=== PATIENT | male | born 1965 | race Caucasian/White ===

== ENCOUNTER 2016-08-03 17:21 | Emergency (ER) | payer OTHER ==
[~2016-08-03] VITALS: Ht 180.3 cm; Wt 77.3 kg
[2016-08-03 17:31] VITALS: BP 140/76; PULSE 87; RESP 18; TEMP 98.3; O2SAT 94
[2016-08-03] MEDS ORDERED: SODIUM CHLORIDE 0.9% FLUSH 5 ML FLUSH IVF PRN (17:45)
[2016-08-03] MEDS ORDERED: SODIUM CHLOR 0.9% 1000 ML INJ 1,000 ML IV ONE (17:45)
--- NOTE | 2016-08-03 17:50 | PD ---
HPI Chief Complaint: OD/ Ingestion Time Seen by Provider: 17:47 Travel History International Travel<30 days: No Contact w/Intl Traveler<30days: No Traveled to known affect area: No History of Present Illness HPI 51-year-old male presents to the emergency Department under police custody for suspected overdose. The patient states that he took approximately (12) 1 mg Xanax that he had in his pocket approximately 2 hours ago. He states he did this because he did not want to have a drug charge. The patient denies any chronic medical problems or taking any medications prescribed. He states he took these from a friend's bottle. The patient was under arrest when he did this. Apparently on scene, the patient was unresponsive, but is now talking and following commands. The patient states he feels "xanied out", but denies any medical complaints. However, during my exam, he laid back and closed his eyes, not responding. He quickly awakened to a sternal rub. Patient is maintaining his own airway and vital signs are stable. According to the chart, the patient has a history of claiming Xanax overdose when being arrested. The patient denies any chronic medical problems or taking any prescribed medications. He reports "drinking a lot" of alcohol. Patient denies any suicidal or homicidal ideation. PFSH Past Medical History Medical History: Denies Significant Hx Blood Disorders: No Anxiety: Yes Depression: No Cancer: No Diabetes: No Diminished Hearing: No Endocrine: No Hepatitis: Yes (HEP C) Hypertension: Yes Immune Disorder: Yes Musculoskeletal: Yes (CHRONIC BACK PAIN-L4-L5 Herniated disc.) Neurologic: No Psychiatric: Yes (SCHIZOPHRENIA) Reproductive: No Schizophrenia: Yes Thyroid Disease: No Past Surgical History Abdominal Surgery: Yes (LIVER BX NEG) Other Surgery: Yes Social History Alcohol Use: Yes Tobacco Use: Yes Substance Use: No Allergies-Medications (Allergen,Severity, Reaction): Coded Allergies: Tylenol (Verified Allergy, Mild, DUE TO HEPATITIS, 08/03/16) Reported Meds & Prescriptions Reported Meds & Active Scripts Active No Active Prescriptions or Reported Medications Review of Systems Except as stated in HPI: all other systems reviewed are Neg Physical Exam Narrative GENERAL: Well-developed well-nourished male patient, afebrile. SKIN: Warm and dry. HEAD: Normocephalic. Atraumatic. EYES: No scleral icterus. No injection or drainage. PERRLA. EOM intact. ENT: Mucosa pink and moist. No erythema or exudates. No uvular edema. No uvular , palatal, or tonsillar deviation. Airway patent. Nasal turbinates appear normal without nasal blood, purulent drainage or septal hematoma. Bilateral tympanic membranes are clear without erythema or perforation. NECK: Supple, trachea midline. No JVD or lymphadenopathy. CARDIOVASCULAR: Regular rate and rhythm without murmurs, gallops, or rubs. RESPIRATORY: Breath sounds equal bilaterally. No accessory muscle use. Lungs sounds are clear to auscultation GASTROINTESTINAL: Abdomen soft, non-tender, nondistended. MUSCULOSKELETAL: No cyanosis, or edema. BACK: Nontender without obvious deformity. No CVA tenderness. Data Data Last Documented VS Vital Signs Date Time Temp Pulse Resp B/P Pulse Ox O2 Delivery O2 Flow Rate FiO2 08/03/16 18:29 96 Room Air 08/03/16 17:31 98.3 87 18 140/76 Orders Electrocardiogram (08/03/16 17:45) Complete Blood Count With Diff (08/03/16 17:45) Comprehensive Metabolic Panel (08/03/16 17:45) Prothrombin Time / Inr (Pt) (08/03/16 17:45) Act Partial Throm Time (Ptt) (08/03/16 17:45) Urinalysis - C+S If Indicated (08/03/16 17:45) Iv Access Insert/Monitor (08/03/16 17:45) Ecg Monitoring (08/03/16 17:45) Oximetry (08/03/16 17:45) Sodium Chloride 0.9% Flush (Ns Flush) (08/03/16 17:45) Sodium Chlor 0.9% 1000 Ml Inj (Ns 1000 M (08/03/16 17:45) Drug Screen, Random Urine (08/03/16 17:45) Alcohol (Ethanol) (08/03/16 17:45) Salicylates (Aspirin) (08/03/16 17:45) Tylenol (Acetaminophen) (08/03/16 17:45) Diet Regular Basic (08/04/16 Dinner) Labs Laboratory Tests Test 08/03/16 18:29 White Blood Count 4.7 TH/MM3 Red Blood Count 4.21 MIL/MM3 Hemoglobin 13.2 GM/DL Hematocrit 38.6 % Mean Corpuscular Volume 91.7 FL Mean Corpuscular Hemoglobin 31.4 PG Mean Corpuscular Hemoglobin 34.3 % Concent Red Cell Distribution Width 13.2 % Platelet Count 208 TH/MM3 Mean Platelet Volume 7.8 FL Neutrophils (%) (Auto) 75.0 % Lymphocytes (%) (Auto) 16.9 % Monocytes (%) (Auto) 6.5 % Eosinophils (%) (Auto) 0.9 % Basophils (%) (Auto) 0.7 % Neutrophils # (Auto) 3.5 TH/MM3 Lymphocytes # (Auto) 0.8 TH/MM3 Monocytes # (Auto) 0.3 TH/MM3 Eosinophils # (Auto) 0.0 TH/MM3 Basophils # (Auto) 0.0 TH/MM3 CBC Comment DIFF FINAL Differential Comment Prothrombin Time 10.0 SEC Prothromb Time International 0.9 RATIO Ratio Activated Partial 24.1 SEC Thromboplast Time Urine Color YELLOW Urine Turbidity CLEAR Urine pH 5.0 Urine Specific [place] 1.017 Urine Protein NEG mg/dL Urine Glucose (UA) NEG mg/dL Urine Ketones NEG mg/dL Urine Occult Blood NEG Urine Nitrite NEG Urine Bilirubin NEG Urine Urobilinogen LESS THAN 2.0 MG/DL Urine Leukocyte Esterase NEG Urine RBC LESS THAN 1 /hpf Urine WBC 4 /hpf Urine Sperm RARE Microscopic Urinalysis Comment CULT NOT INDICATED Sodium Level 144 MEQ/L Potassium Level 3.7 MEQ/L Chloride Level 110 MEQ/L Carbon Dioxide Level 25.1 MEQ/L Anion Gap 9 MEQ/L Blood Urea Nitrogen 11 MG/DL Creatinine 0.79 MG/DL Estimat Glomerular Filtration 103 ML/MIN Rate Random Glucose 122 MG/DL Calcium Level 8.3 MG/DL Total Bilirubin 0.2 MG/DL Aspartate Amino Transf 66 U/L (AST/SGOT) Alanine Aminotransferase 59 U/L (ALT/SGPT) Alkaline Phosphatase 59 U/L Total Protein 7.5 GM/DL Albumin 3.6 GM/DL Salicylates Level 4.2 MG/DL Urine Opiates Screen NEG Acetaminophen Level LESS THAN 2.0 MCG/ML Urine Barbiturates Screen NEG Urine Amphetamines Screen NEG Urine Benzodiazepines Screen NEG Urine Cocaine Screen POS Urine Cannabinoids Screen NEG Ethyl Alcohol Level 65 MG/DL MDM Medical Decision Making Medical Screen Exam Complete: Yes Emergency Medical Condition: Yes Medical Record Reviewed: Yes Differential Diagnosis Malingering versus benzodiazepine overdose versus polysubstance abuse Narrative Course 51-year-old male presents to the emergency Department under police custody and states he took 12 Xanax after he was arrested. According to the record, this is the third time the patient has made this claim upon being arrested. The patient is awake and talking to me. EKG, CBC, CMP, PTT, PTT/INR, UA, urine drug screen, alcohol level, salicylate level, acetaminophen level are ordered and pending. EKG shows sinus rhythm, heart rate 82, no acute ST changes. CBC shows no acute abnormality. CMP shows no acute abnormalities. Coags show no acute abnormality. UDS is positive for cocaine, but negative for benzodiazepines. UA shows no evidence for acute infection. Alcohol level is 65. Salicylate level is 4.2. Acetaminophen level is less than 2.0. 1946 - I spoke to poison control who recommends observation and supportive care for 4 hours. I spoke to Sera, nurse specialist. 2129 - the patient reports feeling fine and is asymptomatic. The patient is stable to be discharged. The patient was discharged in stable condition with instructions, including return instructions and follow up instructions. Diagnosis Primary Impression: Polysubstance abuse Referrals: Primary Care Physician call for appointment Patient Instructions: General Instructions, Polysubstance Abuse (ED) Additional Instructions: Follow-up with your primary care physician. Return to the emergency department for any acute worsening of symptoms. Med/Other Pt SpecificInfo: No Change to Meds Scripts No Active Prescriptions or Reported Meds Disposition: 01 DISCHARGE HOME Condition: Stable GaryRey chanceGertrude ARNP Aug 03, 2016 17:50
[2016-08-03 18:29] VITALS: O2SAT 96
[2016-08-03 18:54] LABS: BLOOD, URINE NEG (NEG); COMMENT (UR) CULT NOT INDICATED; CULTURE IF INDICATED CULT NOT INDICATED; GLUCOSE,URINE NEG (NEG); KETONE, URINE NEG (NEG); NITRITE,URINE NEG (NEG); URINE COLOR YELLOW (YELLW/STRAW)
[2016-08-03 18:56] LABS: AUTOMATED NEUTROPHIL # 3.5 TH/MM3 (1.8-7.7); BASOPHIL % 0.7 % (0.0-2.0); EOSINOPHIL % 0.9 % (0.0-4.0); HEMATOCRIT 38.6 % (39.0-51.0); HEMO FLAGS DIFF FINAL; LYMPH % 16.9 % (9.0-44.0); LYMPHOCYTE # 0.8 TH/MM3 (1.0-4.8); MEAN CELL VOLUME 91.7 FL (80.0-100.0); MEAN CORPUSCULAR HEMOGLOBIN 31.4 PG (27.0-34.0); MEAN CORPUSCULAR HGB CONC 34.3 % (32.0-36.0); MONO % 6.5 % (0.0-8.0); PLATELET COUNT 208 TH/MM3 (150-450); RED BLOOD COUNT 4.21 MIL/MM3 (4.50-5.90); RED CELL DISTRIBUTION WIDTH 13.2 % (11.6-17.2); WHITE BLOOD COUNT 4.7 TH/MM3 (4.0-11.0)
[2016-08-03 18:59] LABS: AMPHETAMINE, URINE NEG (NEG); BARBITURATES, URINE NEG (NEG); COCAINE, URINE POS (NEG)
[2016-08-03 19:02] LABS: APTT (PATIENT) 24.1 SEC (24.3-30.1); INTERNATIONAL NORMALIZED RATIO 0.9 RATIO
[2016-08-03 19:09] LABS: ANION GAP 9 MEQ/L (5-15)
[2016-08-03 19:12] LABS: ALKALINE PHOSPHATASE 59 U/L (45-117); ALT (GPT) 59 U/L (12-78); AST (GOT) 66 U/L (15-37); BICARBONATE 25.1 MEQ/L (21.0-32.0); BLOOD UREA NITROGEN 11 MG/DL (7-18); CHLORIDE 110 MEQ/L (98-107); GLOMERULAR FILTRATION RATE 103 ML/MIN (>89); POTASSIUM 3.7 MEQ/L (3.5-5.1); SODIUM (NA) 144 MEQ/L (136-145); TOTAL BILIRUBIN ADULT 0.2 MG/DL (0.2-1.0)
[2016-08-03 19:29] LABS: ACETAMINOPHEN LESS THAN 2.0 MCG/ML (10.0-30.0)
--- NOTE | 2016-08-04 22:23 | EKG ---
Date Performed: 08/03/2016 Time Performed: 18:21:32 PTAGE: 51 years EKG: Sinus rhythm NORMAL ECG PREVIOUS TRACING : 01/16/2016 11.50 Compared to prior tracing no significant change DOCTOR: Jose Luis Finn Interpretating Date/Time 08/04/2016 22:20:46
== END 2016-08-03 21:55 | disposition home or self-care (01) ==
LOC: NEPC 17:21
DX: F19.10 Other psychoactive substance abuse, uncomplicated (principal); B19.20 Unspecified viral hepatitis C without hepatic coma; I10 Essential (primary) hypertension; Z72.0 Tobacco use
CPT/HCPCS: 80053; 80307; 80320; 81001; 85025; 85610; 85730; 93005; 99284; J7030; 80329; G0480

== ENCOUNTER 2016-08-15 02:55 | Inpatient (IN) | payer OTHER ==
[2016-08-15] VITALS (12 sets, daily range): BP systolic 133–169; BP diastolic 83–106; PULSE 52–85; RESP 10–18; TEMP 97.9–98.6; O2SAT 97–100
[~2016-08-15] VITALS: Ht 172.7 cm; Wt 81.6 kg
[2016-08-15] MEDS ORDERED: SODIUM CHLOR 0.9% 1000 ML INJ 1,000 ML IV SCH (03:13)
[2016-08-15] MEDS ORDERED: SODIUM CHLORIDE 0.9% FLUSH 5 ML FLUSH IVF PRN (03:15)
[2016-08-15 03:45] LABS: BASOPHIL % 0.7 % (0.0-2.0); EOSINOPHIL % 0.8 % (0.0-4.0); HEMATOCRIT 42.4 % (39.0-51.0); HEMO FLAGS DIFF FINAL; LYMPH % 33.8 % (9.0-44.0); LYMPHOCYTE # 1.8 TH/MM3 (1.0-4.8); MEAN CELL VOLUME 93.9 FL (80.0-100.0); MEAN CORPUSCULAR HEMOGLOBIN 31.8 PG (27.0-34.0); MEAN CORPUSCULAR HGB CONC 33.9 % (32.0-36.0); MONO % 8.9 % (0.0-8.0); NEUT % 55.8 % (16.0-70.0); PLATELET COUNT 255 TH/MM3 (150-450); RED BLOOD COUNT 4.51 MIL/MM3 (4.50-5.90); RED CELL DISTRIBUTION WIDTH 15.1 % (11.6-17.2); WHITE BLOOD COUNT 5.3 TH/MM3 (4.0-11.0)
[2016-08-15] MEDS ORDERED: NALOXONE HCL 2 MG/2 ML VIAL IV PUSH ONE (03:45)
[2016-08-15 03:46] LABS: BLOOD, URINE NEG (NEG); COMMENT (UR) CATH-CULT NOT IND; CULTURE IF INDICATED CATH CULTURE NOT IND; GLUCOSE,URINE NEG (NEG); HYALINE CAST, URINE 1 /lpf (RARE); KETONE, URINE NEG (NEG); MUCUS URINE FEW /lpf (OCC); NITRITE,URINE NEG (NEG); PH, URINE 5.5 (5.0-8.5); URINE COLOR YELLOW (YELLW/STRAW)
[2016-08-15 03:52] LABS: APTT (PATIENT) 25.2 SEC (24.3-30.1); INTERNATIONAL NORMALIZED RATIO 0.9 RATIO; PROTHROMBIN TIME - PATIENT 10.3 SEC (9.8-11.6)
[2016-08-15 03:53] LABS: AMPHETAMINE, URINE NEG (NEG); BARBITURATES, URINE NEG (NEG); COCAINE, URINE POS (NEG)
[2016-08-15 04:11] LABS: ALT (GPT) 51 U/L (12-78); ANION GAP 10 MEQ/L (5-15); AST (GOT) 44 U/L (15-37); BICARBONATE 27.7 MEQ/L (21.0-32.0); BLOOD UREA NITROGEN 7 MG/DL (7-18); CHLORIDE 109 MEQ/L (98-107); GLOMERULAR FILTRATION RATE 103 ML/MIN (>89); POTASSIUM 3.5 MEQ/L (3.5-5.1); SODIUM (NA) 147 MEQ/L (136-145)
[2016-08-15 04:21] LABS: ALKALINE PHOSPHATASE 65 U/L (45-117); CREATINE KINASE 207 U/L (39-308); TOTAL BILIRUBIN ADULT 0.2 MG/DL (0.2-1.0)
[2016-08-15 04:23] LABS: ACETAMINOPHEN LESS THAN 2.0 MCG/ML (10.0-30.0)
[2016-08-15] MEDS ORDERED: THIAMINE INJ 100 MG in SODIUM CHLORIDE 0.9% INJ 100 ML IV ONE (04:30)
[2016-08-15] MEDS ORDERED: NALOXONE INJ 4 MG in DEXTROSE 5% IN WATER INJ 246 ML IV SCH ×2 (04:30)
--- NOTE | 2016-08-15 04:55 | RADRPT ---
EXAM DATE/TIME: 08/15/2016 03:42 [facility] COMPARISON: CT BRAIN W/O CONTRAST, May 03, 2016, 16:36. INDICATIONS : Altered mental status. RADIATION DOSE: 46.07 CTDIvol (mGy) MEDICAL HISTORY : Hypertension. Hepatitis C. Substance abuse SURGICAL HISTORY : None. ENCOUNTER: Initial ACUITY: 1 day PAIN SCALE: Non-responsive LOCATION: cranial TECHNIQUE: Multiple contiguous axial images were obtained of the head. Using automated exposure control and adj ustment of the mA and/or kV according to patient size, radiation dose was kept as low as reasonably a chievable to obtain optimal diagnostic quality images. FINDINGS: CEREBRUM: The ventricles are normal for age. No evidence of midline shift, mass lesion, hemorrhage or acute in farction. No extra-axial fluid collections are seen. POSTERIOR FOSSA: The cerebellum and brainstem are intact. The 4th ventricle is midline. The cerebellopontine angle i s unremarkable. EXTRACRANIAL: The visualized portion of the orbits is intact. SKULL: The calvaria is intact. No evidence of skull fracture. CONCLUSION: Normal examination. Akbar Reed MD on August 15, 2016 at 4:52 Board Certified Radiologist. This report was verified electronically.
--- NOTE | 2016-08-15 05:04 | PD ---
HPI Chief Complaint: Altered Mental Status Time Seen by Provider: 03:13 Travel History International Travel<30 days: No Contact w/Intl Traveler<30days: No Traveled to known affect area: No History of Present Illness HPI Patient 51-year-old male who apparently was arrested tonight on transport to [facility] he was GCS 15. Shortly after intake he was found lying on the ground GCS of 3. 911 was called and EMS transported him to the emergency department. No much of the history is available at this time. On arrival the patient is GCS 3. He is breathing approximate 6-8 times minute. He had no desaturation prior to EMS arrival. PFSH Past Medical History Blood Disorders: No Anxiety: Yes Depression: No Cancer: No Diabetes: No Diminished Hearing: No Endocrine: No Hepatitis: Yes (HEP C) Hypertension: Yes Immune Disorder: Yes Musculoskeletal: Yes (CHRONIC BACK PAIN-L4-L5 Herniated disc.) Neurologic: No Psychiatric: Yes (SCHIZOPHRENIA) Reproductive: No Schizophrenia: Yes Thyroid Disease: No Past Surgical History Abdominal Surgery: Yes (LIVER BX NEG) Other Surgery: Yes Social History Alcohol Use: Yes Tobacco Use: Yes Substance Use: No Allergies-Medications (Allergen,Severity, Reaction): Coded Allergies: Tylenol (Verified Allergy, Mild, DUE TO HEPATITIS, 08/15/16) Reported Meds & Prescriptions Reported Meds & Active Scripts Active No Active Prescriptions or Reported Medications Review of Systems ROS Limitations: Altered Mental Status Physical Exam Narrative GENERAL: Well-developed well-nourished, unresponsive with a GCS of 3. SKIN: [place] and warm. HEAD: Atraumatic. Normocephalic. EYES: Pupils approximately 3 mm and very sluggish. No scleral icterus. No injection or drainage. ENT: No nasal bleeding or discharge. Mucous membranes pink and moist. NECK: Trachea midline. No JVD. CARDIOVASCULAR: Regular rate and rhythm. No murmur appreciated. 2+ bilaterally equal pulses in all 4 extremities. RESPIRATORY: No accessory muscle use. Clear to auscultation. Breath sounds equal bilaterally. Bradypneic GASTROINTESTINAL: Abdomen soft, non-tender, nondistended. Hepatic and splenic margins not palpable. MUSCULOSKELETAL: No obvious deformities. No clubbing. No cyanosis. No edema. NEUROLOGICAL: GCS of 3, does not respond to even the deepest painful stimuli to nailbeds or sternal rub. When lifting the patient's hands and dropping them over his face he repetitively impacts his face. PSYCHIATRIC: Unable to to assess. Data Data Last Documented VS Vital Signs Date Time Temp Pulse Resp B/P Pulse Ox O2 Delivery O2 Flow Rate FiO2 08/15/16 04:08 77 18 139/85 99 08/15/16 03:18 Nasal Cannula 3 08/15/16 03:08 97.9 Orders Electrocardiogram (08/15/16 03:13) Ammonia (08/15/16 03:13) Complete Blood Count With Diff (08/15/16 03:13) Comprehensive Metabolic Panel (08/15/16 03:13) Creatine Kinase (Cpk) (08/15/16 03:13) Prothrombin Time / Inr (Pt) (08/15/16 03:13) Act Partial Throm Time (Ptt) (08/15/16 03:13) Troponin I (08/15/16 03:13) Thyroid Stimulating Hormone (08/15/16 03:13) Urinalysis - C+S If Indicated (08/15/16 03:13) Ct Brain W/O Iv Contrast(Rout) (08/15/16 03:13) Blood Glucose (08/15/16 03:13) Ecg Monitoring (08/15/16 03:13) Iv Access Insert/Monitor (08/15/16 03:13) Oximetry (08/15/16 03:13) Sodium Chloride 0.9% Flush (Ns Flush) (08/15/16 03:15) Sodium Chlor 0.9% 1000 Ml Inj (Ns 1000 M (08/15/16 03:13) Drug Screen, Random Urine (08/15/16 03:13) Alcohol (Ethanol) (08/15/16 03:13) Salicylates (Aspirin) (08/15/16 03:13) Tylenol (Acetaminophen) (08/15/16 03:13) Urinary Catheter Management HÉCTOR.Q8H (08/15/16 03:13) Naloxone Inj (Narcan Inj) (08/15/16 03:45) Thiamine Inj (Thiamine Inj) (08/15/16 04:30) Naloxone Inj (Narcan Inj) (08/15/16 04:30) Arterial Blood Gas (Abg) (08/15/16 ) Admit Order (Ed Use Only) (08/15/16 ) Labs Laboratory Tests Test 08/15/16 03:30 White Blood Count 5.3 TH/MM3 Red Blood Count 4.51 MIL/MM3 Hemoglobin 14.4 GM/DL Hematocrit 42.4 % Mean Corpuscular Volume 93.9 FL Mean Corpuscular Hemoglobin 31.8 PG Mean Corpuscular Hemoglobin 33.9 % Concent Red Cell Distribution Width 15.1 % Platelet Count 255 TH/MM3 Mean Platelet Volume 7.2 FL Neutrophils (%) (Auto) 55.8 % Lymphocytes (%) (Auto) 33.8 % Monocytes (%) (Auto) 8.9 % Eosinophils (%) (Auto) 0.8 % Basophils (%) (Auto) 0.7 % Neutrophils # (Auto) 3.0 TH/MM3 Lymphocytes # (Auto) 1.8 TH/MM3 Monocytes # (Auto) 0.5 TH/MM3 Eosinophils # (Auto) 0.0 TH/MM3 Basophils # (Auto) 0.0 TH/MM3 CBC Comment DIFF FINAL Differential Comment Prothrombin Time 10.3 SEC Prothromb Time International 0.9 RATIO Ratio Activated Partial 25.2 SEC Thromboplast Time Urine Color YELLOW Urine Turbidity CLEAR Urine pH 5.5 Urine Specific [place] 1.012 Urine Protein NEG mg/dL Urine Glucose (UA) NEG mg/dL Urine Ketones NEG mg/dL Urine Occult Blood NEG Urine Nitrite NEG Urine Bilirubin NEG Urine Urobilinogen LESS THAN 2.0 MG/DL Urine Leukocyte Esterase NEG Urine WBC LESS THAN 1 /hpf Urine Hyaline Casts 1 /lpf Urine Mucus FEW /lpf Microscopic Urinalysis Comment CATH-CULT NOT IND Sodium Level 147 MEQ/L Potassium Level 3.5 MEQ/L Chloride Level 109 MEQ/L Carbon Dioxide Level 27.7 MEQ/L Anion Gap 10 MEQ/L Blood Urea Nitrogen 7 MG/DL Creatinine 0.79 MG/DL Estimat Glomerular Filtration 103 ML/MIN Rate Random Glucose 122 MG/DL Calcium Level 8.1 MG/DL Phosphorus Level 3.8 MG/DL Total Bilirubin 0.2 MG/DL Aspartate Amino Transf 44 U/L (AST/SGOT) Alanine Aminotransferase 51 U/L (ALT/SGPT) Alkaline Phosphatase 65 U/L Ammonia 31 MCMOL/L Total Creatine Kinase 207 U/L Troponin I LESS THAN 0.02 NG/ML Total Protein 7.8 GM/DL Albumin 3.5 GM/DL Thyroid Stimulating Hormone 0.606 uIU/ML 3rd Gen Salicylates Level 3.7 MG/DL Urine Opiates Screen NEG Acetaminophen Level LESS THAN 2.0 MCG/ML Urine Barbiturates Screen NEG Urine Amphetamines Screen NEG Urine Benzodiazepines Screen NEG Urine Cocaine Screen POS Urine Cannabinoids Screen NEG Ethyl Alcohol Level 281 MG/DL MDM Medical Decision Making Medical Screen Exam Complete: Yes Emergency Medical Condition: Yes Differential Diagnosis Altered mental status, ingestion, intoxication, hypercapnic respiratory failure , encephalopathy, malingering does need to be considered. Narrative Course Patient was roomed in the emergency department, or planning for intubation patient's blood sugar was checked is 170 range. He was given 2 mg of Narcan which didn't have some response to mental status. Just prior to applying induction agent patient opened his eyes and began following commands and bilateral upper extremities and his GCS improved to [id number]. Patient was taken to CT scan which was negative, labs including ammonia lactic acid and CBC CMP lipase were within normal limits. ABG was also within normal limits. The catheter was inserted and patient had no response to this, GCS was reassessed and is now GCS 3 again. Patient was given an additional dose of Narcan and he awoke and stated that his penis hurt after the catheter. Patient was started on Narcan drip. I discussed the patient with Dr. Webber was coming down examine the patient and agreed to admit. Shortly after Dr. Webber admitted, the patient' s GCS continues to improve and is now GCS of 15. Critical Care Narrative Aggregate critical care time was 35 minutes. Time to perform other separately billable procedures was not included in the critical care time. My time did not include minutes spent treating any other patients simultaneously or on activities that did not directly contribute to the patient's treatment. The services I provided to this patient were to treat and/or prevent clinically significant deterioration that could result in: , disability, organ failure. I provided critical care services requiring my management, as noted below: Chart data review, documentation time, medication orders and management, vital sign assessments/reviewing monitor data, ordering and reviewing lab tests, ordering and interpreting/reviewing x-rays and diagnostic studies, care of the patient and discussion of the patient with the admitting physicians. Diagnosis Primary Impression: Altered mental state Qualified Code: R40.2432 - [place] coma scale total score 3-8, at arrival to emergency department Admitting Information Admitting Physician Requests: Admit Scripts No Active Prescriptions or Reported Meds Condition: Joe Carroll MD Aug 15, 2016 05:04
--- NOTE | 2016-08-15 05:13 | HHI.HP ---
[facility] Service Critical Care Medicine Primary Care Physician No Primary Care Physician Admission Diagnosis Altered Mental Status. Diagnosis: (1) Acute encephalopathy Diagnosis: Principal (2) Cocaine and alcohol intoxication Diagnosis: Principal (3) Polysubstance abuse Diagnosis: Secondary (4) Hypertension Diagnosis: Secondary (5) Hepatitis C Diagnosis: Secondary Chief Complaint: Altered mentation Travel History International Travel<30 Days: No Contact w/Intl Traveler <30 Da: No Traveled to Known Affected Are: No History of Present Illness Patient is a 51 year-old male with history of hepatitis C and polysubstance abuse who was brought into the ED by police officers for evaluation of acute mental status change. Apparently patient was arrested and was taken to detention, later found unresponsive on the floor. Patient received 0.8 mg Narcan by EMS followed by 2 mg of Narcan 2 in the ED. Each time patient response to Narcan, wakes up and talk but then becomes unresponsive in a few minutes. CT head is negative. Urine drug screen positive for cocaine, alcohol level was 281. I evaluated the patient in the ED. He does not respond to painful stimuli. ER physician has just started Narcan gtt. ABGs normal. I do not think patient is to be intubated at this time. Will admit to ICU for close neuro checks. Review of Systems ROS Limitations: Altered Mental Status Past Family Social History Allergies: Coded Allergies: Tylenol (Verified Allergy, Mild, DUE TO HEPATITIS, 08/15/16) Past Medical History Hepatitis C Alcohol dependence Tobacco use Chronic back pain-L4-L5 Herniated disc Past Surgical History None Reported Medications None Active Ordered Medications Reviewed Family History Father of ID at the age of 63 Social History Per prev admit note: Smokes half a pack per day 30 years, Drinks about 8-10 beers per day. UDS was positive for cocaine Physical Exam Vital Signs Vital Signs Date Time Temp Pulse Resp B/P Pulse Ox O2 Delivery O2 Flow Rate FiO2 08/15/16 04:08 77 18 139/85 99 08/15/16 03:18 98 Nasal Cannula 3 08/15/16 03:13 98 Room Air 3 08/15/16 03:08 97.9 83 18 133/83 98 Physical Exam GENERAL: This is a well-nourished, well-developed patient, remains unresponsive SKIN: No rashes, ecchymoses or lesions. Cool and dry. HEAD: Atraumatic. Normocephalic. EYES: Pinpoint pupils 3mm bilaterally, reactive. No scleral icterus. No injection or drainage. ENT: Airway patent. Oral mucosa dry NECK: Trachea midline. No JVD or lymphadenopathy. Supple and nontender CARDIOVASCULAR: Regular rate and rhythm without murmurs, gallops, or rubs. No edema RESPIRATORY: Clear to auscultation. Breath sounds equal bilaterally. No wheezes , rales, or rhonchi. GASTROINTESTINAL: Abdomen soft, non-tender, nondistended. No hepato-splenomegaly MUSCULOSKELETAL: Extremities without clubbing, cyanosis, or edema. NEUROLOGICAL: Patient remains unresponsive. Unable to elicit withdrawal to pain. (Few minutes ago when he received Narcan he was talking and communicating) Laboratory Laboratory Tests Test 08/15/16 03:30 White Blood Count 5.3 Red Blood Count 4.51 Hemoglobin 14.4 Hematocrit 42.4 Mean Corpuscular Volume 93.9 Mean Corpuscular Hemoglobin 31.8 Mean Corpuscular Hemoglobin 33.9 Concent Red Cell Distribution Width 15.1 Platelet Count 255 Mean Platelet Volume 7.2 Neutrophils (%) (Auto) 55.8 Lymphocytes (%) (Auto) 33.8 Monocytes (%) (Auto) 8.9 Eosinophils (%) (Auto) 0.8 Basophils (%) (Auto) 0.7 Neutrophils # (Auto) 3.0 Lymphocytes # (Auto) 1.8 Monocytes # (Auto) 0.5 Eosinophils # (Auto) 0.0 Basophils # (Auto) 0.0 CBC Comment DIFF FINAL Differential Comment Prothrombin Time 10.3 Prothromb Time International 0.9 Ratio Activated Partial 25.2 Thromboplast Time Urine Color YELLOW Urine Turbidity CLEAR Urine pH 5.5 Urine Specific [place] 1.012 Urine Protein NEG Urine Glucose (UA) NEG Urine Ketones NEG Urine Occult Blood NEG Urine Nitrite NEG Urine Bilirubin NEG Urine Urobilinogen LESS THAN 2.0 Urine Leukocyte Esterase NEG Urine WBC LESS THAN 1 Urine Hyaline Casts 1 Urine Mucus FEW Microscopic Urinalysis Comment CATH-CULT NOT IND Sodium Level 147 Potassium Level 3.5 Chloride Level 109 Carbon Dioxide Level 27.7 Anion Gap 10 Blood Urea Nitrogen 7 Creatinine 0.79 Estimat Glomerular Filtration 103 Rate Random Glucose 122 Calcium Level 8.1 Total Bilirubin 0.2 Aspartate Amino Transf 44 (AST/SGOT) Alanine Aminotransferase 51 (ALT/SGPT) Alkaline Phosphatase 65 Ammonia 31 Total Creatine Kinase 207 Troponin I LESS THAN 0.02 Total Protein 7.8 Albumin 3.5 Thyroid Stimulating Hormone 0.606 3rd Gen Salicylates Level 3.7 Urine Opiates Screen NEG Acetaminophen Level LESS THAN 2.0 Urine Barbiturates Screen NEG Urine Amphetamines Screen NEG Urine Benzodiazepines Screen NEG Urine Cocaine Screen POS Urine Cannabinoids Screen NEG Ethyl Alcohol Level 281 Result Diagram: 08/15/16 0330 08/15/[address] head negative Assessment and Plan Assessment and Plan NEURO: Acute encephalopathy Cocaine and alcohol intoxication Polysubstance abuse Alcohol dependence -Monitor closely for airway protection -Watch for alcohol withdrawal, supplement thiamine -Urine drug screen positive for cocaine but negative for opiates -Patient did respond to Narcan IV push so will start a Narcan infusion for any synthetic drugs which may not show on the drug screen RESP: Respiratory insufficiency -Nasal cannula oxygen -I do not think patient needs to be intubated at this time -Aggressive pulmonary toilet CV: -Normal saline IV fluids 2 L bolus and 125 mL per hour -Monitor heart rate and blood pressure GI: History of hepatitis C -Nothing by mouth. IV Protonix : -Monitor renal function closely. Juan catheter. ID: -Watch closely for infection HEME: -Monitor CBC, coags ENDO: -Electrolyte replacement per protocol PROPH: -Bilateral lower extremity SCDs. Lovenox for DVT prophylaxis, Protonix for GI prophylaxis LINES: -Utilize peripheral IVs, central line if needed CC time 35 min Code Status Full Discussed Condition With Dr. Mason Problem Qualifiers (1) Hypertension: Qualified Code: I15.9 - Secondary hypertension Andrzej Webber MD Aug 15, 2016 05:13 Andrzej Webber MD Aug 15, 2016 05:13
[2016-08-15 05:15] LABS: BLOOD GAS CARBOXYHEMOGLOBIN 4.9 % (0-4); BLOOD GAS HCO3 25 mmol/L (22-26); BLOOD GAS METHEMOGLOBIN 2.3 % (0-2); BLOOD GAS O2 HGB SATURATION 90 % (90-100); BLOOD GAS OXYGEN CONTENT 18.1 Vol % (12.0-20.0); BLOOD GAS PCO2 42 mmHg (38-42); BLOOD GAS PO2 92 mmHG (61-120); BLOOD GAS TOTAL HGB 14.2 G/DL (12.0-16.0); TEMP CORR TO 98.6
[2016-08-15] MEDS ORDERED: SODIUM CHLOR 0.9% 1000 ML INJ 1,000 ML IV ONE ×2 (05:15)
[2016-08-15 05:16] LABS: CRITICAL VALUE NO; DRAW SITE RT FEMORAL; LITER FLOW 2 L/M; NUMBER OF ARTERIAL PUNCTURES 1; OXYGEN DEVICE NASAL CANNULA; STAT YES
[2016-08-15] MEDS ORDERED: MAGNESIUM SULFATE INJ 4 GM in SODIUM CHLORIDE 0.9% INJ 92 ML IV PRN (05:30)
[2016-08-15] MEDS ORDERED: CHLORHEXIDINE GLUCONATE 2 % 1 PACK (2 CLOTHS) TOP PRN (05:30)
[2016-08-15] MEDS ORDERED: SODIUM CHLORIDE 0.9% FLUSH 5 ML FLUSH IV FLUSH PRN (05:30)
[2016-08-15] MEDS ORDERED: MAGNESIUM SULFATE INJ 2 GM in SODIUM CHLORIDE 0.9% INJ 96 ML IV PRN (05:30)
[2016-08-15] MEDS ORDERED: POTASSIUM CHLOR 40 MEQ PREMIX 100 ML IV PRN ×2 (05:30)
[2016-08-15] MEDS ORDERED: POTASSIUM CHLOR 20 MEQ PREMIX 100 ML IV PRN ×2 (05:30)
[2016-08-15] MEDS ORDERED: POTASSIUM PHOSPHATE MONOBASIC 500 MG TAB PO PRN (05:30)
[2016-08-15] MEDS ORDERED: POTASSIUM PHOSPHATE MONOBASIC 500 MG TAB PO/TUBE PRN (05:30)
[2016-08-15] MEDS ORDERED: SODIUM PHOSPHATE INJ 30 MMOL in SODIUM CHLOR 0.9% 250 ML INJ 240 ML IV PRN (05:30)
[2016-08-15] MEDS ORDERED: MAGNESIUM OXIDE 400 MG TAB PO PRN (05:30)
[2016-08-15] MEDS ORDERED: POTASSIUM PHOSPHATE INJ 30 MMOL in SODIUM CHLOR 0.9% 250 ML INJ 250 ML IV PRN (05:30)
[2016-08-15] MEDS ORDERED: MISCELLANEOUS NURSING INFORMATION XX SCH (05:30)
[2016-08-15] MEDS ORDERED: POTASSIUM CL 40 MEQ/30 ML LIQ UDC PO/TUBE PRN ×2 (05:30)
[2016-08-15] MEDS ORDERED: RESP: ALBUTEROL 2.5 MG/IPRATROPIUM 0.5 MG NEB (PRN) INH (05:30)
[2016-08-15] MEDS: DEXT 5%-NACL 0.45% 1000 ML INJ 1,000 ML IV SCH ×3 (06:28→20:38)
[2016-08-15] MEDS: ENOXAPARIN SODIUM 40 MG/0.4 ML SYRINGE SQ SCH (06:30)
[2016-08-15] MEDS ORDERED: THIAMINE INJ 100 MG in SODIUM CHLORIDE 0.9% INJ 100 ML IV SCH ×4 (09:00)
[2016-08-15] MEDS: SODIUM CHLORIDE 0.9% FLUSH 5 ML FLUSH IV FLUSH SCH ×2 (09:00→20:38)
[2016-08-15] MEDS: PANTOPRAZOLE SODIUM 40 MG VIAL IV SCH (09:00)
[2016-08-15] MEDS ORDERED: FLUMAZENIL 0.5 MG/5 ML VIAL IV PUSH PRN (11:00)
[2016-08-15] MEDS ORDERED: LORazepam 2 MG/ML VIAL IV PUSH PRN ×4 (11:00)
--- NOTE | 2016-08-15 14:30 | EKG ---
Date Performed: 08/15/2016 Time Performed: 03:27:58 PTAGE: 51 years EKG: Sinus rhythm NORMAL ECG Compared to prior tracing no significant change PREVIOUS TRACING : 08/03/2016 18.21 DOCTOR: Domenic Giordano Interpretating Date/Time 08/15/2016 14:29:59
[2016-08-16] VITALS (20 sets, daily range): BP systolic 118–185; BP diastolic 56–101; PULSE 53–92; RESP 17–22; TEMP 95.5–99; O2SAT 95–99
[2016-08-16] MEDS ORDERED: IBUPROFEN 400 MG TAB PO ONE (04:00)
[2016-08-16] MEDS ORDERED: CHLORHEXIDINE GLUCONATE 2 % 1 PACK (2 CLOTHS) TOP SCH (04:00)
[2016-08-16] MEDS: ENOXAPARIN SODIUM 40 MG/0.4 ML SYRINGE SQ SCH (04:26)
[2016-08-16] MEDS: DEXT 5%-NACL 0.45% 1000 ML INJ 1,000 ML IV SCH ×3 (04:28→20:15)
[2016-08-16 05:15] LABS: AUTOMATED NEUTROPHIL # 3.5 TH/MM3 (1.8-7.7); BASOPHIL % 0.7 % (0.0-2.0); EOSINOPHIL % 0.9 % (0.0-4.0); HEMATOCRIT 40.2 % (39.0-51.0); HEMO FLAGS DIFF FINAL; LYMPH % 25.7 % (9.0-44.0); LYMPHOCYTE # 1.4 TH/MM3 (1.0-4.8); MEAN CELL VOLUME 92.2 FL (80.0-100.0); MEAN CORPUSCULAR HGB CONC 34.7 % (32.0-36.0); MONO % 8.3 % (0.0-8.0); NEUT % 64.4 % (16.0-70.0); PLATELET COUNT 224 TH/MM3 (150-450); RED BLOOD COUNT 4.36 MIL/MM3 (4.50-5.90); RED CELL DISTRIBUTION WIDTH 14.8 % (11.6-17.2); WHITE BLOOD COUNT 5.3 TH/MM3 (4.0-11.0)
[2016-08-16 05:41] LABS: ALT (GPT) 39 U/L (12-78); ANION GAP 8 MEQ/L (5-15); AST (GOT) 28 U/L (15-37); BICARBONATE 25.8 MEQ/L (21.0-32.0); BLOOD UREA NITROGEN 9 MG/DL (7-18); CHLORIDE 105 MEQ/L (98-107); GLOMERULAR FILTRATION RATE 104 ML/MIN (>89); MAGNESIUM 1.9 MG/DL (1.5-2.5); POTASSIUM 3.5 MEQ/L (3.5-5.1); SODIUM (NA) 139 MEQ/L (136-145)
[2016-08-16 05:44] LABS: ALKALINE PHOSPHATASE 60 U/L (45-117); TOTAL BILIRUBIN ADULT 0.6 MG/DL (0.2-1.0)
--- NOTE | 2016-08-16 08:21 | HHI.PR ---
Subjective Remarks in no acute distress. has minimal pain to the RUQ. awake and alert. d/w the RN and no acute issues over night. Objective Vitals Vital Signs Date Time Temp Pulse Resp B/P Pulse Ox O2 Delivery O2 Flow Rate FiO2 08/16/16 06:00 53 08/16/16 05:25 12 08/16/16 04:00 57 08/16/16 04:00 99.0 57 17 150/74 96 08/16/16 02:00 54 08/16/16 00:00 56 08/16/16 00:00 98.7 56 18 138/67 95 08/15/16 22:00 52 08/15/16 20:00 98.6 64 10 158/98 100 08/15/16 20:00 78 08/15/16 18:00 78 08/15/16 13:36 75 18 156/96 97 Room Air 08/15/16 12:25 81 18 152/99 99 Nasal Cannula 2 08/15/16 10:19 72 18 151/92 99 Room Air I/O 08/15/16 08/15/16 08/15/16 08/16/16 08/16/16 08/16/16 07:00 15:00 23:00 07:00 15:00 23:00 Intake Total 1015 ml 1173 ml Output Total 850 ml 1150 ml Balance 165 ml 23 ml Intake Oral 350 ml 350 ml IV Total 665 ml 823 ml Output Urine Total 850 ml 1150 ml # Bowel Movements 0 0 Result Diagram: 08/16/16 0455 08/16/16 0455 Imaging Last Impressions Head CT 08/15/16 0313 Signed Impressions: Service Date/Time: Monday, August 15, 2016 03:42 - CONCLUSION: Normal examination. Akbar Reed MD Objective Remarks GENERAL: This is a well-nourished, well-developed patient, in no apparent distress. CARDIOVASCULAR: Regular rate and regular rhythm without murmurs, gallops, or rubs. RESPIRATORY: Clear to auscultation. Breath sounds equal bilaterally. No wheezes , rales, or rhonchi. GASTROINTESTINAL: Abdomen soft, non-tender, nondistended. Normal, active bowel sounds MUSCULOSKELETAL: Extremities without clubbing, cyanosis, or edema. NEURO: Alert & Oriented x4 to person, place, time, situation. Moves all ext x4 Procedures none Medications and IVs Current Medications IV Flush 2 ml 2 ml UNSCH PRN IVF FLUSH AFTER USING IV ACCESS; Start 08/15/16 at 03:15; Stop 08/15/16 at 05:32; Status DC Sodium Chloride (NS 1000 ml Inj) 1,000 ml @ 1,000 mls/hr Q1H IV Last administered on 08/15/16 03:35; Start 08/15/16 at 03:13; Stop 08/15/16 at 04:12; Status DC Naloxone HCl 2 mg 2 mg ONCE ONCE IV PUSH Last administered on 08/15/16 04:06; Start 08/15/16 at 03:45; Stop 08/15/16 at 03:46; Status DC Thiamine HCl 100 mg/Sodium Chloride 101 ml @ 101 mls/hr ONCE ONCE IV Last administered on 08/15/16 05:01; Start 08/15/16 at 04:30; Stop 08/15/16 at 05:29; Status DC Naloxone HCl 4 mg/ Dextrose 250 ml @ 0 mls/hr TITRATE IV Last administered on 05:01; Start 08/15/16 at 04:30 Sodium Chloride 1,000 ml @ 999 mls/hr BOLUS ONCE IV Last administered on 06:28; Start 08/15/16 at 05:15; Stop 08/15/16 at 06:15; Status DC Sodium Chloride 1,000 ml @ 999 mls/hr BOLUS ONCE IV Last administered on 05:15; Start 08/15/16 at 05:15; Stop 08/15/16 at 06:15; Status DC Thiamine HCl 100 mg/Sodium Chloride 101 ml @ 101 mls/hr DAILY IV ; Start at 09:00; Stop 08/15/16 at 09:00; Status DC Thiamine HCl 100 mg/Sodium Chloride 101 ml @ 101 mls/hr DAILY IV ; Start at 09:00; Stop 08/15/16 at 09:00; Status DC Potassium Chloride 100 ml @ 50 mls/hr Q2H PRN IV For Potassium 2.8 - 3.2 mEq/L ; Start 08/15/16 at 05:30 Potassium Chloride (KCl 20 Meq Premix Inj) 100 ml @ 50 mls/hr Q2H PRN IV For Potassium 2.8 - 3.2 mEq/L; Start 08/15/16 at 05:30 Potassium Chloride 40 meq 40 meq UNSCH PRN PO/TUBE For Potassium 3.3 - 3.5 mEq/ L Last administered on 08/16/16t 06:02; Start 08/15/16 at 05:30 Potassium Chloride 100 ml @ 25 mls/hr UNSCH PRN IV For Potassium 3.3 - 3.5 mEq /L; Start 08/15/16 at 05:30 Potassium Chloride 100 ml @ 50 mls/hr Q2H PRN IV For Potassium 3.3 - 3.5 mEq/L ; Start 08/15/16 at 05:30 Magnesium Sulfate/ Sodium Chloride (Magnesium Sulfate Inj/NS Inj) 100 ml @ 50 mls/hr UNSCH PRN IV For Magnesium 0.9 - 1.1 mg/dL; Start 08/15/16 at 05:30 Magnesium Oxide 800 mg 800 mg UNSCH PRN PO For Magnesium 1.2 - 1.6 mg/dL; Start 08/15/16 at 05:30 Magnesium Sulfate/ Sodium Chloride (Magnesium Sulfate Inj/NS Inj) 100 ml @ 50 mls/hr UNSCH PRN IV For Magnesium 1.2 - 1.6 mg/dL; Start 08/15/16 at 05:30 Potassium Phosphate 2000 mg 2,000 mg Q4H PRN PO For Phosphorus < 2.5 mg/dL; Start 08/15/16 at 05:30 Sodium Phosphate/ Sodium Chloride (Sodium Phosphate Inj/NS 250 ml Inj) 250 ml @ 42 mls/hr UNSCH PRN IV For Phosphorus < 2.5 mg/dL; Start 08/15/16 at 05:30 Potassium Chloride (KCl 40 Meq/30 ml Liq) 40 meq UNSCH PRN PO/TUBE SEE LABEL COMMENTS; Start 08/15/16 at 05:30 Potassium Phosphate 2000 mg 2,000 mg UNSCH PRN PO/TUBE SEE LABEL COMMENTS; Start 08/15/16 at 05:30 Potassium Phosphate 30 mmol/ Sodium Chloride 260 ml @ 42 mls/hr UNSCH PRN IV SEE LABEL COMMENTS; Start 08/15/16 at 05:30 Thiamine HCl 100 mg/Sodium Chloride 101 ml @ 101 mls/hr DAILY IV ; Start at 09:00 Dextrose/Sodium Chloride (D5W-1/2 NS 1000 ml Inj) 1,000 ml @ 125 mls/hr Q8H IV Last administered on 08/16/16 04:28; Start 08/15/16 at 05:21 IV Flush (NS Flush) 2 ml UNSCH PRN IV FLUSH FLUSH AFTER USING IV ACCESS; Start 08/15/16 at 05:30 IV Flush (NS Flush) 2 ml BID IV FLUSH Last administered on 08/15/16 20:38; Start 08/15/16 at 09:00 Pantoprazole Sodium (Protonix Inj) 40 mg DAILY IV Last administered on 09:00; Start 08/15/16 at 09:00 Albuterol/ Ipratropium (Duoneb Neb) 1 ampule Q4HR NEB PRN INH WHEEZING; Start 08/15/16 at 05:30 Enoxaparin Sodium (Lovenox Inj) 40 mg Q24H SQ Last administered on 08/16/16 04: 26; Start 08/15/16 at 05:30 Miscellaneous Information 1 Q361D XX ; Start 08/15/16 at 05:30 Chlorhexidine Gluconate (Chlorhexidine 2% Cloth) 3 pack Taper DAILY@04 TOP Last administered on 08/16/16 04:00; Start 08/16/16 at 04:00; Stop 08/12/17 at 03: 59 Chlorhexidine Gluconate (Chlorhexidine 2% Cloth) 3 pack UNSCH PRN TOP HYGIENIC CARE; Start 08/15/16 at 05:30 Flumazenil (Romazicon Inj) 0.2 mg Q1M PRN IV PUSH SEE LABEL COMMENTS; Start 08/15/16 at 11:00 Lorazepam (Ativan) 1 mg Q4H PRN PO CIWA 8 - 10; Start 08/15/16 at 11:00 Lorazepam (Ativan Inj) 1 mg Q4H PRN IV PUSH CIWA 8 - 10 Last administered on 04:37; Start 08/15/16 at 11:00 Lorazepam (Ativan) 2 mg Q2H PRN PO CIWA 11-14; Start 08/15/16 at 11:00 Lorazepam (Ativan Inj) 2 mg Q2H PRN IV PUSH CIWA 11-14; Start 08/15/16 at 11:00 Lorazepam (Ativan Inj) 2 mg Q1H PRN IV PUSH CIWA 15-20; Start 08/15/16 at 11:00 Lorazepam (Ativan Inj) 2 mg Q15M PRN IV PUSH CIWA > 20; Start 08/15/16 at 11:00 Ibuprofen (Motrin) 400 mg ONCE ONCE PO Last administered on 08/16/16t 04:25; Start 08/16/16 at 04:00; Stop 08/16/16 at 04:01; Status DC A/P Assessment and Plan A/P Acute encephalopathy- improving Cocaine and alcohol intoxication Polysubstance abuse Alcohol dependence suicidal ideation -Watch for alcohol withdrawal, supplement thiamine -Urine drug screen positive for cocaine but negative for opiates -off the Narcan drip -ativan as needed. -psych will be consulted. Respiratory insufficiency - improved -Nasal cannula oxygen -Aggressive pulmonary toilet History of hepatitis C -f/u as outpatient. hypertension?- vasotec prn for now- PROPH: -Bilateral lower extremity SCDs. Lovenox for DVT prophylaxis, Protonix for GI prophylaxis transfer to floor. d/w the RN. Discharge Planning discharge in am if stable. Abbe Hamilton MD Aug 16, 2016 08:21
[2016-08-16] MEDS: PANTOPRAZOLE SODIUM 40 MG VIAL IV SCH (08:43)
[2016-08-16] MEDS: LORazepam 1 MG TAB PO PRN ×2 (08:46→12:22)
[2016-08-16] MEDS: ENALAPRILAT 1.25 MG/ML VIAL IV PUSH PRN (08:59)
[2016-08-16] MEDS: IBUPROFEN 400 MG TAB PO PRN ×2 (09:43→21:09)
--- NOTE | 2016-08-16 15:42 | PD.CONS ---
Provisional Diagnosis Admission Date Aug 15, 2016 at 05:04 [place] I. Polysubstance dependence, including cocaine, alcohol, heroine, marijuana [place] II. Antisocial personality disorder [place] III. Hepatitis C History of Present Illness Service Psychiatry Consult Requested By Primary Care Physician No Primary Care Physician HPI The patient is a 51 year-old man, domicile with his mother, unemployed , single, with psychiatric history of polysubstance dependence, including cocaine, alcohol, heroine, benzodiazepines, cannabis, self reported anxiety and depression, previous suicidal attempts, history of aggressive behavior and incarcerations, multiple ER visits due to drugs related problems, who was brought into the ED by police officers for evaluation of acute mental status change. Apparently patient was arrested and was taken to shelter, later found unresponsive on the floor. On psychiatric evaluation patient was found irritable, but cooperative. He says that he is tired of being a drug addict and his drug problem are controlling him. Reports sadness, hopelessness, helplessness, but he denies suicidal ideation, he denies visual and auditory hallucinations. Patient acknowledged that after medical clearance his current go back to police custody and most probably to shelter and requested to be medicated with Seroquel and clonazepam to decrease his drug craving and to be able to sleep in shelter. Review of Systems Constitutional: DENIES: Diaphoretic episodes, Fatigue, Fever, Weight gain, Weight loss, Chills, Dizziness, Change in appetite, Night Sweats Endocrine: DENIES: Heat/cold intolerance, Polydipsia, Polyuria, Polyphagia Eyes: DENIES: Blurred vision, Diplopia, Eye inflammation, Eye pain, Vision loss , Photosensitivity, Double Vision Ears, nose, mouth, throat: DENIES: Tinnitus, Hearing loss, Vertigo, Nasal discharge, Oral lesions, Throat pain, Hoarseness, Ear Pain, Running Nose, Epistaxis, Sinus Pain, Toothache, Odynophagia Respiratory: DENIES: Apneas, Cough, Snoring, Wheezing, Hemoptysis, Sputum production, Shortness of breath Cardiovascular: DENIES: Chest pain, Palpitations, Syncope, Dyspnea on Exertion , PND, Lower Extremity Edema, Orthopnea, Claudication Gastrointestinal: DENIES: Abdominal pain, Black stools, Bloody stools, Constipation, Diarrhea, Nausea, Vomiting, Difficulty Swallowing, Anorexia Musculoskeletal: DENIES: Joint pain, Muscle aches, Stiffness, Joint Swelling, Back pain, Neck pain Hematologic/lymphatic: DENIES: Bruising, Lymphadenopathy Immunologic/allergic: DENIES: Eczema, Urticaria Neurologic: DENIES: Abnormal gait, Headache, Localized weakness, Paresthesias, Seizures, Speech Problems, Tremor, Poor Balance Psychiatric: DENIES: Anxiety, Confusion, Mood changes, Depression, Hallucinations, Agitation, Suicidal Ideation, Homicidal Ideation, Delusions Past Family Social History Coded Allergies: Tylenol (Verified Allergy, Mild, DUE TO HEPATITIS, 08/15/16) No Active Prescriptions or Reported Meds Current Medications Medications (Trade) Dose Ordered Sig/Angely Route Start Time Stop Time Status Last Admin Naloxone HCl 4 mg/ Dextrose 250 ml @ 0 mls/hr TITRATE IV 08/15/16 04:30 08/15/16 05:01 Sodium Phosphate 30 mmol/Sodium Chloride 250 ml @ 42 mls/hr UNSCH PRN IV 08/15/16 05:30 Thiamine HCl 100 mg/Sodium Chloride 101 ml @ 101 mls/hr DAILY IV 08/16/16 09:00 (D5W-1/2 NS 1000 ml Inj) 1,000 ml @ 125 mls/hr Q8H IV 08/15/16 05:21 08/16/16 08:43 (NS Flush) 2 ml UNSCH PRN IV FLUSH 08/15/16 05:30 (NS Flush) 2 ml BID IV FLUSH 08/15/16 09:00 08/15/16 20:38 (Protonix Inj) 40 mg DAILY IV 08/15/16 09:00 08/16/16 08:43 (Lovenox Inj) 40 mg Q24H SQ 08/15/16 05:30 08/16/16 04:26 Miscellaneous Information 1 Q361D XX 08/15/16 05:30 (Chlorhexidine 2% Cloth) 3 pack Taper DAILY@04 TOP 08/16/16 04:00 08/12/17 03:59 08/16/16 04:00 (Chlorhexidine 2% Cloth) 3 pack UNSCH PRN TOP 08/15/16 05:30 (Romazicon Inj) 0.2 mg Q1M PRN IV PUSH 08/15/16 11:00 (Ativan) 1 mg Q4H PRN PO 08/15/16 11:00 08/16/16 08:46 (Ativan Inj) 1 mg Q4H PRN IV PUSH 08/15/16 11:00 08/16/16 04:37 (Ativan) 2 mg Q2H PRN PO 08/15/16 11:00 (Ativan Inj) 2 mg Q2H PRN IV PUSH 08/15/16 11:00 08/16/16 12:23 (Ativan Inj) 2 mg Q1H PRN IV PUSH 08/15/16 11:00 (Ativan Inj) 2 mg Q15M PRN IV PUSH 08/15/16 11:00 (Vasotec Inj) 1.25 mg Q8H PRN IV PUSH 08/16/16 08:30 08/16/16 08:59 (Motrin) 400 mg Q8HR PRN PO 08/16/16 09:00 08/16/16 09:43 Family History He denies Social History Patient was born and raised in [place], he lives with his mother, he is unemployed, single, highest level of education is high school Physical Exam Vital Signs Vital Signs Date Time Temp Pulse Resp B/P Pulse Ox O2 Delivery O2 Flow Rate FiO2 08/16/16 12:16 98.5 85 118/56 08/16/16 10:54 18 08/16/16 08:00 96 08/15/16 13:36 Room Air 08/15/16 12:25 2 I/O 08/15/16 08/15/16 08/16/16 08:00 16:00 00:00 Intake Total 1015 ml Output Total 850 ml Balance 165 ml Mental Status Examination Speech: Unremarkable Orientation: x3 Memory: Unremarkable Thought Process: Logical Thought Content: Unremarkable Hallucination Type: None Suicidal Ideation: No Previous Suicide Attempts: Yes Homicidal Ideation: No Previous Homicide Attempts: No Insight: Good Affect: Irritable Mood: Angry Motor Activity: Normal gait Assessment & Plan Problem List: (1) Polysubstance dependence Assessment & Plan: The patient is a 51 year-old man, domicile with his mother, unemployed, single, with psychiatric history of polysubstance dependence, including cocaine, alcohol, heroine, benzodiazepines, cannabis, self reported anxiety and depression, previous suicidal attempts, history of aggressive behavior and incarcerations, multiple ER visits due to drugs related problems medical, who was brought into the ED by police officers for evaluation of acute mental status change. Initially BAL was 2018, [place]. On psychiatric evaluation today patient doesn't present symptomatology of depression related with current legal and medical situation, but he denies suicidal or homicidal ideation, he denies visual and auditory hallucinations, seems to be accepting that after medically clear he has to face the law. Patient does not meet criteria for psychiatric admission at this moment. Is important to clarify the patient carries a chronic increased risk of suicidality , crying, poor impulse control due to continues use of drugs but also due to character structure and most probably antisocial personality disorder. Will prescribe Seroquel 100 mg at bedtime to help the patient to sleep and for impulse control. Support, motivation psycho education were provided to the patient. ICD Code: F19.20 Assessment & Plan Estimated LOS: Chapin Marrero MD Aug 16, 2016 15:42
[2016-08-16] MEDS: THIAMINE INJ 100 MG in SODIUM CHLORIDE 0.9% INJ 100 ML IV SCH (16:03)
[2016-08-16] MEDS: LORazepam 2 MG TAB PO PRN ×3 (16:03→23:57)
[2016-08-16] MEDS ORDERED: QUEtiapine FUMARATE 100 MG TAB PO SCH (21:00)
[2016-08-16] MEDS: SODIUM CHLORIDE 0.9% FLUSH 5 ML FLUSH IV FLUSH SCH (21:08)
[2016-08-17] VITALS (8 sets, daily range): BP systolic 137–169; BP diastolic 76–98; PULSE 62–84; RESP 18–20; TEMP 97.9–98.4; O2SAT 98–99
[2016-08-17] MEDS: LORazepam 2 MG TAB PO PRN ×2 (03:33→08:38)
[2016-08-17] MEDS: DEXT 5%-NACL 0.45% 1000 ML INJ 1,000 ML IV SCH (03:33)
[2016-08-17] MEDS: ENOXAPARIN SODIUM 40 MG/0.4 ML SYRINGE SQ SCH (05:37)
[2016-08-17] MEDS: PANTOPRAZOLE SODIUM 40 MG VIAL IV SCH (08:35)
[2016-08-17] MEDS: SODIUM CHLORIDE 0.9% FLUSH 5 ML FLUSH IV FLUSH SCH (08:36)
[2016-08-17] MEDS: THIAMINE INJ 100 MG in SODIUM CHLORIDE 0.9% INJ 100 ML IV SCH (08:36)
[2016-08-17] MEDS: ENALAPRILAT 1.25 MG/ML VIAL IV PUSH PRN (08:36)
--- NOTE | 2016-08-17 09:17 | HHI.PR ---
Subjective Remarks in no acute distress. awake, alert and oriented. no chest pain or sob. d/w the RN and no acute issues over night. Objective Vitals Vital Signs Date Time Temp Pulse Resp B/P Pulse Ox O2 Delivery O2 Flow Rate FiO2 08/17/16 07:45 97.9 65 20 169/98 98 08/17/16 07:45 65 08/17/16 06:00 64 08/17/16 05:00 64 08/17/16 04:00 62 08/17/16 03:00 98.1 65 18 138/92 98 08/17/16 03:00 62 08/17/16 02:00 64 08/17/16 01:00 68 08/17/16 01:00 66 08/17/16 00:00 98.4 78 18 137/76 99 08/17/16 00:00 84 08/16/16 23:59 98 08/16/16 23:00 74 08/16/16 22:00 72 08/16/16 21:00 58 08/16/16 20:00 98.7 62 18 150/80 99 08/16/16 20:00 68 08/16/16 19:00 92 08/16/16 18:00 88 08/16/16 16:22 98.7 70 22 157/101 97 08/16/16 16:00 80 08/16/16 14:00 85 08/16/16 12:16 98.5 85 118/56 08/16/16 12:00 82 08/16/16 11:04 63 08/16/16 10:54 18 08/16/16 10:03 69 I/O 08/16/16 08/16/16 08/16/16 08/17/16 08/17/16 08/17/16 07:00 15:00 23:00 07:00 15:00 23:00 Intake Total 1173 ml 1175 ml 1849 ml Output Total 1150 ml 2000 ml 600 ml 2650 ml Balance 23 ml -2000 ml 575 ml -801 ml Intake Oral 350 ml 720 ml IV Total 823 ml 1175 ml 1129 ml Output Urine Total 1150 ml 2000 ml 600 ml 2650 ml # Bowel Movements 0 1 0 Result Diagram: 08/16/16 0455 08/16/16 2842 Imaging Last Impressions Head CT 08/15/16312 Signed Impressions: Service Date/Time: Monday, August 15, 2016 03:42 - CONCLUSION: Normal examination. Akbar Reed MD Objective Remarks GENERAL: This is a well-nourished, well-developed patient, in no apparent distress. CARDIOVASCULAR: Regular rate and regular rhythm without murmurs, gallops, or rubs. RESPIRATORY: Clear to auscultation. Breath sounds equal bilaterally. No wheezes , rales, or rhonchi. GASTROINTESTINAL: Abdomen soft, non-tender, nondistended. Normal, active bowel sounds MUSCULOSKELETAL: Extremities without clubbing, cyanosis, or edema. NEURO: Alert & Oriented x4 to person, place, time, situation. Moves all ext x4 Procedures none Medications and IVs Current Medications IV Flush 2 ml 2 ml UNSCH PRN IVF FLUSH AFTER USING IV ACCESS; Start 08/15/16 at 03:15; Stop 08/15/16 at 05:32; Status DC Sodium Chloride (NS 1000 ml Inj) 1,000 ml @ 1,000 mls/hr Q1H IV Last administered on 08/15/16 03:35; Start 08/15/16 at 03:13; Stop 08/15/16 at 04:12; Status DC Naloxone HCl 2 mg 2 mg ONCE ONCE IV PUSH Last administered on 08/15/16 04:06; Start 08/15/16 at 03:45; Stop 08/15/16 at 03:46; Status DC Thiamine HCl 100 mg/Sodium Chloride 101 ml @ 101 mls/hr ONCE ONCE IV Last administered on 08/15/16 05:01; Start 08/15/16 at 04:30; Stop 08/15/16 at 05:29; Status DC Naloxone HCl 4 mg/ Dextrose 250 ml @ 0 mls/hr TITRATE IV Last administered on 05:01; Start 08/15/16 at 04:30 Sodium Chloride 1,000 ml @ 999 mls/hr BOLUS ONCE IV Last administered on 06:28; Start 08/15/16 at 05:15; Stop 08/15/16 at 06:15; Status DC Sodium Chloride 1,000 ml @ 999 mls/hr BOLUS ONCE IV Last administered on 05:15; Start 08/15/16 at 05:15; Stop 08/15/16 at 06:15; Status DC Thiamine HCl 100 mg/Sodium Chloride 101 ml @ 101 mls/hr DAILY IV ; Start at 09:00; Stop 08/15/16 at 09:00; Status DC Thiamine HCl 100 mg/Sodium Chloride 101 ml @ 101 mls/hr DAILY IV ; Start at 09:00; Stop 08/15/16 at 09:00; Status DC Potassium Chloride 100 ml @ 50 mls/hr Q2H PRN IV For Potassium 2.8 - 3.2 mEq/L ; Start 08/15/16 at 05:30; Stop 08/16/16 at 08:23; Status DC Potassium Chloride (KCl 20 Meq Premix Inj) 100 ml @ 50 mls/hr Q2H PRN IV For Potassium 2.8 - 3.2 mEq/L; Start 08/15/16 at 05:30; Stop 08/16/16 at 08:24; Status DC Potassium Chloride 40 meq 40 meq UNSCH PRN PO/TUBE For Potassium 3.3 - 3.5 mEq/ L Last administered on 08/16/16t 06:02; Start 08/15/16 at 05:30; Stop 08/16/16 at 08:24; Status DC Potassium Chloride 100 ml @ 25 mls/hr UNSCH PRN IV For Potassium 3.3 - 3.5 mEq /L; Start 08/15/16 at 05:30; Stop 08/16/16 at 08:24; Status DC Potassium Chloride 100 ml @ 50 mls/hr Q2H PRN IV For Potassium 3.3 - 3.5 mEq/L ; Start 08/15/16 at 05:30; Stop 08/16/16 at 08:25; Status DC Magnesium Sulfate/ Sodium Chloride (Magnesium Sulfate Inj/NS Inj) 100 ml @ 50 mls/hr UNSCH PRN IV For Magnesium 0.9 - 1.1 mg/dL; Start 08/15/16 at 05:30; Stop 08/16/16 at 08:26; Status DC Magnesium Oxide 800 mg 800 mg UNSCH PRN PO For Magnesium 1.2 - 1.6 mg/dL; Start 08/15/16 at 05:30; Stop 08/16/16 at 08:26; Status DC Magnesium Sulfate/ Sodium Chloride (Magnesium Sulfate Inj/NS Inj) 100 ml @ 50 mls/hr UNSCH PRN IV For Magnesium 1.2 - 1.6 mg/dL; Start 08/15/16 at 05:30; Stop 08/16/16 at 08:26; Status DC Potassium Phosphate 2000 mg 2,000 mg Q4H PRN PO For Phosphorus < 2.5 mg/dL; Start 08/15/16 at 05:30; Stop 08/16/16 at 08:27; Status DC Sodium Phosphate/ Sodium Chloride (Sodium Phosphate Inj/NS 250 ml Inj) 250 ml @ 42 mls/hr UNSCH PRN IV For Phosphorus < 2.5 mg/dL; Start 08/15/16 at 05:30 Potassium Chloride (KCl 40 Meq/30 ml Liq) 40 meq UNSCH PRN PO/TUBE SEE LABEL COMMENTS; Start 08/15/16 at 05:30; Stop 08/16/16 at 08:27; Status DC Potassium Phosphate 2000 mg 2,000 mg UNSCH PRN PO/TUBE SEE LABEL COMMENTS; Start 08/15/16 at 05:30; Stop 08/16/16 at 08:27; Status DC Potassium Phosphate 30 mmol/ Sodium Chloride 260 ml @ 42 mls/hr UNSCH PRN IV SEE LABEL COMMENTS; Start 08/15/16 at 05:30; Stop 08/16/16 at 08:27; Status DC Thiamine HCl 100 mg/Sodium Chloride 101 ml @ 101 mls/hr DAILY IV Last administered on 08/17/16 08:36; Start 08/16/16 at 09:00 Dextrose/Sodium Chloride (D5W-1/2 NS 1000 ml Inj) 1,000 ml @ 125 mls/hr Q8H IV Last administered on 08/17/16 03:33; Start 08/15/16 at 05:21 IV Flush (NS Flush) 2 ml UNSCH PRN IV FLUSH FLUSH AFTER USING IV ACCESS; Start 08/15/16 at 05:30 IV Flush (NS Flush) 2 ml BID IV FLUSH Last administered on 08/17/16 08:36; Start 08/15/16 at 09:00 Pantoprazole Sodium (Protonix Inj) 40 mg DAILY IV Last administered on 08:35; Start 08/15/16 at 09:00 Albuterol/ Ipratropium (Duoneb Neb) 1 ampule Q4HR NEB PRN INH WHEEZING; Start 08/15/16 at 05:30 Enoxaparin Sodium (Lovenox Inj) 40 mg Q24H SQ Last administered on 08/17/16 05: 37; Start 08/15/16 at 05:30 Miscellaneous Information 1 Q361D XX ; Start 08/15/16 at 05:30 Chlorhexidine Gluconate (Chlorhexidine 2% Cloth) 3 pack Taper DAILY@04 TOP Last administered on 08/16/16 04:00; Start 08/16/16 at 04:00; Stop 08/12/17 at 03: 59 Chlorhexidine Gluconate (Chlorhexidine 2% Cloth) 3 pack UNSCH PRN TOP HYGIENIC CARE; Start 08/15/16 at 05:30 Flumazenil (Romazicon Inj) 0.2 mg Q1M PRN IV PUSH SEE LABEL COMMENTS; Start 08/15/16 at 11:00 Lorazepam (Ativan) 1 mg Q4H PRN PO CIWA 8 - 10 Last administered on 08/16/16 08 :46; Start 08/15/16 at 11:00 Lorazepam (Ativan Inj) 1 mg Q4H PRN IV PUSH CIWA 8 - 10 Last administered on 04:37; Start 08/15/16 at 11:00 Lorazepam (Ativan) 2 mg Q2H PRN PO CIWA 11-14 Last administered on 08/17/16 08: 38; Start 08/15/16 at 11:00 Lorazepam (Ativan Inj) 2 mg Q2H PRN IV PUSH CIWA 11-14 Last administered on 08/16 12:23; Start 08/15/16 at 11:00 Lorazepam (Ativan Inj) 2 mg Q1H PRN IV PUSH CIWA 15-20; Start 08/15/16 at 11:00 Lorazepam (Ativan Inj) 2 mg Q15M PRN IV PUSH CIWA > 20; Start 08/15/16 at 11:00 Ibuprofen (Motrin) 400 mg ONCE ONCE PO Last administered on 08/16/16 04:25; Start 08/16/16 at 04:00; Stop 08/16/16 at 04:01; Status DC Enalaprilat (Vasotec Inj) 1.25 mg Q8H PRN IV PUSH SBP> OR = 180, DBP> OR = 100 Last administered on 08/17/16 08:36; Start 08/16/16 at 08:30 Ibuprofen (Motrin) 400 mg Q8HR PRN PO HEADACHE Last administered on 08/16/16 21 :09; Start 08/16/16 at 09:00 Quetiapine Fumarate (SEROquel) 100 mg HS PO Last administered on 08/16/16 21:08 ; Start 08/16/16 at 21:00 A/P Assessment and Plan A/P Acute encephalopathy- improving Cocaine and alcohol intoxication Polysubstance abuse Alcohol dependence suicidal ideation -Watch for alcohol withdrawal, supplement thiamine -Urine drug screen positive for cocaine but negative for opiates -psych consult appreciated and cleared for discharge. Respiratory insufficiency - improved -Nasal cannula oxygen -Aggressive pulmonary toilet History of hepatitis C -f/u as outpatient. hypertension- start norvasc- f/u as outpatient. PROPH: -Bilateral lower extremity SCDs. Lovenox for DVT prophylaxis, Protonix for GI prophylaxis Discharge Planning discharge to correctional facility today. see med list. d/w the patient and RN. Abbe Hamilton MD Aug 17, 2016 09:17
[2016-08-17] MEDS ORDERED: AMLO5 PO (09:20)
[2016-08-17] MEDS ORDERED: QUET1TAB8 PO (09:20)
--- NOTE | 2016-08-17 09:21 | HHI.DCPOC ---
Discharge Care Plan Diagnosis: (1) Polysubstance abuse Your Health Problems Are: Difficulty with ADL Goals to Promote Your Health * To prevent worsening of your condition and complications * To maintain your health at the optimal level Directions to Meet Your Goals Take your medications as prescribed Follow your dietary instruction Follow activity as directed Keep your appointments as scheduled Take your immunizations and boosters as scheduled If your symptoms worsen call your PCP, if no PCP go to Urgent Care Center or Emergency Room Smoking is Dangerous to Your Health. Avoid second hand smoke Call the 24-hour hour crisis hotline for domestic abuse at Abbe Hamilton MD Aug 17, 2016 09:21
--- NOTE | 2016-08-17 09:22 | HHI.DS ---
Discharge Summary Admission Date Aug 15, 2016 at 05:04 Discharge Date: Aug 17, 2016 Admitting Diagnosis Altered Mental Status. (1) Acute encephalopathy ICD Code: G93.40 Diagnosis: Principal (2) Cocaine and alcohol intoxication Diagnosis: Principal (3) Polysubstance abuse ICD Code: F19.10 Diagnosis: Secondary (4) Hypertension ICD Code: I10 Diagnosis: Secondary (5) Hepatitis C ICD Code: B19.20 Diagnosis: Secondary Procedures none Brief History - From Admission Patient is a 51 year-old male with history of hepatitis C and polysubstance abuse who was brought into the ED by police officers for evaluation of acute mental status change. Apparently patient was arrested and was taken to [facility], later found unresponsive on the floor. Patient received 0.8 mg Narcan by EMS followed by 2 mg of Narcan 2 in the ED. Each time patient response to Narcan, wakes up and talk but then becomes unresponsive in a few minutes. CT head is negative. Urine drug screen positive for cocaine, alcohol level was 281. I evaluated the patient in the ED. He does not respond to painful stimuli. ER physician has just started Narcan gtt. ABGs normal. I do not think patient is to be intubated at this time. Will admit to ICU for close neuro checks. CBC/BMP: 08/16/16 0455 08/16/16 0455 Significant Findings Laboratory Tests Test 08/15/16 08/15/16 08/16/16 03:30 05:05 04:55 Monocytes (%) (Auto) 8.9 % (0.0-8.0) 8.3 % (0.0-8.0) Urine Mucus FEW /lpf (OCC) Sodium Level 147 MEQ/L (136-145) Chloride Level 109 MEQ/L (98-107) Random Glucose 122 MG/DL 111 MG/DL (74-106) (74-106) Calcium Level 8.1 MG/DL 8.3 MG/DL (8.5-10.1) (8.5-10.1) Aspartate Amino Transf 44 U/L (15-37) (AST/SGOT) Troponin I LESS THAN 0.02 NG/ML (0.02-0.05) Acetaminophen Level LESS THAN 2.0 MCG/ML (10.0-30.0) Urine Cocaine Screen POS (NEG) Ethyl Alcohol Level 281 MG/DL (0-5) Arterial Blood 4.9 % (0-4) Carboxyhemoglobin Arterial Blood Methemoglobin 2.3 % (0-2) Red Blood Count 4.36 MIL/MM3 (4.50-5.90) Albumin 3.0 GM/DL (3.4-5.0) Imaging Last Impressions Head CT 08/15/16 0313 Signed Impressions: Service Date/Time: Monday, August 15, 2016 03:42 - CONCLUSION: Normal examination. Akbar Reed MD PE at Discharge GENERAL: This is a well-nourished, well-developed patient, in no apparent distress. CARDIOVASCULAR: Regular rate and regular rhythm without murmurs, gallops, or rubs. RESPIRATORY: Clear to auscultation. Breath sounds equal bilaterally. No wheezes , rales, or rhonchi. GASTROINTESTINAL: Abdomen soft, non-tender, nondistended. Normal, active bowel sounds MUSCULOSKELETAL: Extremities without clubbing, cyanosis, or edema. NEURO: Alert & Oriented x4 to person, place, time, situation. Moves all ext x4 Hospital Course Acute encephalopathy- improving Cocaine and alcohol intoxication Polysubstance abuse Alcohol dependence suicidal ideation -Watch for alcohol withdrawal, supplement thiamine -Urine drug screen positive for cocaine but negative for opiates -psych consult appreciated and cleared for discharge. Respiratory insufficiency - improved -Nasal cannula oxygen -Aggressive pulmonary toilet History of hepatitis C -f/u as outpatient. hypertension- start norvasc- f/u as outpatient. PROPH: -Bilateral lower extremity SCDs. Lovenox for DVT prophylaxis, Protonix for GI prophylaxis Pt Condition on Discharge: Fair Discharge Disposition: Trnsfr to Other Facility Discharge Time: <= 30 minutes Discharge Instructions DIET: Follow Instructions for: Heart Healthy Diet Activities you can perform: Regular-No Restrictions Follow up Referrals: PCP Follow-up Psychiatry Adult New Medications: Amlodipine (Norvasc) 5 Mg Tab 5 MG PO DAILY Blood Pressure Management #30 Ref 0 TAB Multiple Vitamins W/ Minerals (Multivitamin Adults) 1 Tab 1 TAB PO DAILY Nutritional Supplement Days 30 Ref 0 TAB Thiamine (Thiamine) 100 Mg Tab 100 MG PO DAILY Nutritional Supplement Days 30 Ref 0 TAB Quetiapine (Quetiapine) 100 Mg Tab 100 MG PO HS anxiety Days 30 Ref 0 TAB Abbe Hamilton MD Aug 17, 2016 09:22
[2016-08-17] MEDS ORDERED: MULT1TAB84 PO (09:24)
[2016-08-17] MEDS ORDERED: THIA100T PO (09:24)
--- NOTE | 2016-08-18 13:27 | HHI.PYPN ---
Subjective Remarks Patient was seen for psychiatric evaluation today, patient was found in his bed , he reports good mood, motivation to be discharged and continue with his methadone program in his life, he denies depression, he denies anxiety, he denies perceptual disturbances, he denies fito, he denies suicidal and homicidal ideations. He denies visual and auditory hallucinations, he is oriented 3, no agitation, no aggressive behavior or mood disorder to observe or reported. Review of Systems Other No somatic complaints Objective Alert: Yes Guy: Person, Place, Date, Situation Mood: Calm Affect: Euthymic Memory Intact: Immediate, Recent, Remote Hallucinations: Other (he denies) Delusions: No Delusion Type: Other (none elicited) Suicidal: Ideation (he denies) Homicidal: Ideation (he denies) Insight/Judgement fair Vitals/IOs Vital Signs Date Time Temp Pulse Resp B/P Pulse Ox O2 Delivery O2 Flow Rate FiO2 08/17/16 07:45 97.9 65 20 169/98 98 08/15/16 13:36 Room Air 08/15/16 12:25 2 Intake and Output 08/17/16 08/17/16 08/18/16 08:00 16:00 00:00 Intake Total 1849 ml Output Total 2650 ml Balance -801 ml Assessment & Plan Problem List: (1) Polysubstance dependence Assessment & Plan: Patient does not present any acute, significant or concerning psychiatric symptoms that requires an immediate psychiatric intervention at this moment. Support, motivation, psycho education provided. ICD Code: F19.20 Assessment & Plan Estimated LOS: days Justification for Cont. Inpt. Patient does not meet criteria for psychiatric admission at this moment Chapin Booth MD Aug 18, 2016 13:27
== END 2016-08-17 11:09 | DRG 72 ==
LOC: NEPC 02:55 → NEDA 05:04 → HIMN 17:10 → HCIN 08-16 16:56
PROVIDERS: ADMIT Internal Medicine; ATTEND Internal Medicine
DX: G93.40 Encephalopathy, unspecified (principal); I10 Essential (primary) hypertension; F14.129 Cocaine abuse with intoxication, unspecified; F10.229 Alcohol dependence with intoxication, unspecified; Y90.8 Blood alcohol level of 240 mg/100 ml or more; F60.2 Antisocial personality disorder; B19.20 Unspecified viral hepatitis C without hepatic coma; R06.89 Other abnormalities of breathing; R40.2432 Glasgow coma scale score 3-8, at arrival to emergency department
CPT/HCPCS: 36600; 51702; 70450; 80053; 80307; 80320; 81001; 82140; 82550; 82805; 83735; 84100; 84443; 84484; 85025; 85610; 85730; 87641; 93005; 96361; 96374; 96375; 96376; C9113; J1650; J2060; J2310; J3411; J7030; J7060

== ENCOUNTER 2017-01-28 22:14 | Emergency (ER) | payer SELFPAY ==
[~2017-01-28] VITALS: Ht 180.3 cm; Wt 81.8 kg
[~2017-01-28 22:14] MED LIST: AMLO5 PO; MULT1TAB84 PO; QUET1TAB8 PO; THIA100T PO
[2017-01-28 22:24] VITALS: BP 151/83; PULSE 88; RESP 18; O2SAT 97
--- NOTE | 2017-01-28 22:53 | PD ---
HPI Chief Complaint: Numbness/Tingling Time Seen by Provider: 22:17 Travel History International Travel<30 days: No Contact w/Intl Traveler<30days: No Traveled to known affect area: No History of Present Illness HPI This 51-year-old male is complaining that his right leg is numb. Initially he indicated that the leg was numb but later he says the foot. There is no history of trauma. He has a long history of back trouble. He says it happened quite abruptly 3 days ago and since then he has not been able to use his foot much. He has a history of polysubstance abuse. He denies recent IV drug use. He claims that he has not abused drugs for some time however he was in the hospital in August with altered mental status related to substance abuse. He apparently has a history of schizophrenia. He is not on any medication. He denies any pain. He does not have headache or back pain. Says he had 2 beers prior to coming in [facility]. He says that he exercises all day as well as 2000 sit-ups daily. He has had back trouble in the past. He says at one time he was being considered for back surgery but was never done. He has a history of sciatica. He has not had a problem with incontinence. [facility] Past Medical History Blood Disorders: No Anxiety: Yes Depression: Yes Cancer: No Cardiovascular Problems: No Diabetes: No Diminished Hearing: No Endocrine: No Genitourinary: No Hepatitis: Yes (HEP C) Hypertension: Yes Immune Disorder: No Musculoskeletal: No Neurologic: No Psychiatric: Yes Reproductive: No Respiratory: No Schizophrenia: Yes Thyroid Disease: No Tetanus Vaccination: < 5 Years Influenza Vaccination: Yes Past Surgical History Abdominal Surgery: Yes (LIVER BX NEG) Other Surgery: Yes Social History Alcohol Use: Yes (DRINKS BEER) Tobacco Use: Yes (1 PACK PER WEEK) Substance Use: Yes Allergies-Medications (Allergen,Severity, Reaction): Coded Allergies: acetaminophen (Unverified Allergy, Mild, DUE TO HEPATITIS, 01/28/17) Reported Meds & Prescriptions Reported Meds & Active Scripts Active No Active Prescriptions or Reported Medications Review of Systems General / Constitutional: No: Fever, Chills Eyes: No: Diploplia HENT: No: Headaches, Vertigo Cardiovascular: No: Chest Pain or Discomfort, Palpitations Respiratory: No: Cough, Shortness of Breath Gastrointestinal: No: Nausea, Vomiting Genitourinary: No: Urgency, Frequency Musculoskeletal: No: Myalgias Skin: No Rash Neurologic: Positive: Weakness, Sensory Disturbance Endocrine: No: Cold Intolerance Hematologic/Lymphatic: No: Easy Bruising Physical Exam Narrative GENERAL: Well-developed male SKIN: Focused skin assessment warm/dry. HEAD: Atraumatic. Normocephalic. EYES: Pupils equal and round. No scleral icterus. No injection or drainage. ENT: No nasal bleeding or discharge. Mucous membranes pink and moist. NECK: Trachea midline. No JVD. CARDIOVASCULAR: Regular rate and rhythm. No murmur appreciated. RESPIRATORY: No accessory muscle use. Clear to auscultation. Breath sounds equal bilaterally. GASTROINTESTINAL: Abdomen soft, non-tender, nondistended. Hepatic and splenic margins not palpable. MUSCULOSKELETAL: No obvious deformities. No clubbing. No cyanosis. No edema. There is no tenderness of the back to palpation. There is no pain with straight leg raising. He is able to sit up and in all positions. He is able to flex at the hip. He is able to flex at the knee and extend at the knee. Flexion and extension of the foot on the right appears weak. On sensory testing he appears to have some diminished sensation on the lateral aspect of the thigh and the posterior portion of the calf. There are good pulses palpable. exam does not appear consistent from one examination to the next. Perianal sensation is intact NEUROLOGICAL: Awake and alert. No obvious cranial nerve deficits. Motor grossly within normal limits. Normal speech. PSYCHIATRIC: Appropriate mood and affect; insight and judgment normal. Data Data Last Documented VS Vital Signs Date Time Temp Pulse Resp B/P Pulse Ox O2 Delivery O2 Flow Rate FiO2 01/28/17 22:32 18 97 Room Air 01/28/17 22:24 88 151/83 Orders Complete Blood Count With Diff (01/28/17 22:20) Comprehensive Metabolic Panel (01/28/17 22:20) Urinalysis - C+S If Indicated (01/28/17 22:20) Magnesium (Mg) (01/28/17 22:20) Drug Screen, Random Urine (01/28/17 22:20) Alcohol (Ethanol) (01/28/17 22:20) Potassium Chloride (Kcl) (01/28/17 23:15) Labs Laboratory Tests Test 01/28/17 22:54 White Blood Count 6.2 TH/MM3 Red Blood Count 4.39 MIL/MM3 Hemoglobin 13.5 GM/DL Hematocrit 38.5 % Mean Corpuscular Volume 87.8 FL Mean Corpuscular Hemoglobin 30.7 PG Mean Corpuscular Hemoglobin 35.0 % Concent Red Cell Distribution Width 12.8 % Platelet Count 187 TH/MM3 Mean Platelet Volume 7.7 FL Neutrophils (%) (Auto) 67.9 % Lymphocytes (%) (Auto) 17.1 % Monocytes (%) (Auto) 10.0 % Eosinophils (%) (Auto) 0.6 % Basophils (%) (Auto) 4.4 % Neutrophils # (Auto) 4.2 TH/MM3 Lymphocytes # (Auto) 1.1 TH/MM3 Monocytes # (Auto) 0.6 TH/MM3 Eosinophils # (Auto) 0.0 TH/MM3 Basophils # (Auto) 0.3 TH/MM3 CBC Comment DIFF FINAL Differential Comment Urine Color STRAW Urine Turbidity CLEAR Urine pH 6.0 Urine Specific [place] 1.002 Urine Protein NEG mg/dL Urine Glucose (UA) NEG mg/dL Urine Ketones NEG mg/dL Urine Occult Blood NEG Urine Nitrite NEG Urine Bilirubin NEG Urine Leukocyte Esterase NEG Urine RBC 0-3 /hpf Urine WBC 0-2 /hpf Urine Squamous Epithelial 0-5 /hpf Cells Urine Bacteria NONE /hpf Microscopic Urinalysis Comment CULT NOT INDICATED Sodium Level 143 MEQ/L Potassium Level 3.3 MEQ/L Chloride Level 108 MEQ/L Carbon Dioxide Level 26.0 MEQ/L Anion Gap 9 MEQ/L Blood Urea Nitrogen 10 MG/DL Creatinine 0.98 MG/DL Estimat Glomerular Filtration 80 ML/MIN Rate Random Glucose 107 MG/DL Calcium Level 8.8 MG/DL Magnesium Level 2.1 MG/DL Total Bilirubin 0.3 MG/DL Aspartate Amino Transf 87 U/L (AST/SGOT) Alanine Aminotransferase 77 U/L (ALT/SGPT) Alkaline Phosphatase 66 U/L Total Protein 7.3 GM/DL Albumin 3.5 GM/DL Urine Opiates Screen NEG Urine Barbiturates Screen NEG Urine Amphetamines Screen NEG Urine Benzodiazepines Screen NEG Urine Cocaine Screen NEG Urine Cannabinoids Screen NEG Ethyl Alcohol Level 200 MG/DL MDM Medical Decision Making Medical Screen Exam Complete: Yes Emergency Medical Condition: Yes Medical Record Reviewed: Yes Differential Diagnosis Differential includes radiculopathy, conversion reaction, Narrative Course Physical exam does not appear consistent from one examination to the next. At times it appears that he can move the foot. He initially complained that he could not move the leg but now has very good movement at the hip and the knee. He may have some radiculopathy at L5-S1. We will put him on crutches which will help him ambulate. He is not having any pain. He flexes and extends his back after mostly and I don't think imaging is warranted at this time. I recommended he follow up with neurology if the symptoms persist Diagnosis Primary Impression: Radiculopathy of lumbar region Scripts No Active Prescriptions or Reported Meds Disposition: 01 DISCHARGE HOME Condition: Stable Neo Villareal MD Jan 28, 2017 22:53
[2017-01-28 22:59] LABS: BLOOD, URINE NEG (NEG); GLUCOSE,URINE NEG (NEG); KETONE, URINE NEG (NEG); NITRITE,URINE NEG (NEG)
[2017-01-28 23:01] LABS: URINE COLOR STRAW (YELLW/STRAW)
[2017-01-28 23:02] LABS: AUTOMATED NEUTROPHIL # 4.2 TH/MM3 (1.8-7.7); BASOPHIL # 0.3 TH/MM3 (0-0.2); BASOPHIL % 4.4 % (0.0-2.0); EOSINOPHIL % 0.6 % (0.0-4.0); HEMATOCRIT 38.5 % (39.0-51.0); HEMO FLAGS DIFF FINAL; LYMPH % 17.1 % (9.0-44.0); LYMPHOCYTE # 1.1 TH/MM3 (1.0-4.8); MEAN CELL VOLUME 87.8 FL (80.0-100.0); MEAN CORPUSCULAR HEMOGLOBIN 30.7 PG (27.0-34.0); NEUT % 67.9 % (16.0-70.0); PLATELET COUNT 187 TH/MM3 (150-450); RED BLOOD COUNT 4.39 MIL/MM3 (4.50-5.90); RED CELL DISTRIBUTION WIDTH 12.8 % (11.6-17.2); WHITE BLOOD COUNT 6.2 TH/MM3 (4.0-11.0)
[2017-01-28 23:03] LABS: COMMENT (UR) CULT NOT INDICATED; CULTURE IF INDICATED CULT NOT INDICATED; RBC, URINE 0-3 /hpf (0-3); SQUAMOUS EPITHELIAL CELL URINE 0-5 /hpf (0-5); WBC, URINE 0-2 /hpf (0-5)
[2017-01-28 23:07] LABS: CHLORIDE 108 MEQ/L (98-107); POTASSIUM 3.3 MEQ/L (3.5-5.1); SODIUM (NA) 143 MEQ/L (136-145)
[2017-01-28 23:11] LABS: ANION GAP 9 MEQ/L (5-15); BLOOD UREA NITROGEN 10 MG/DL (7-18); MAGNESIUM 2.1 MG/DL (1.5-2.5)
[2017-01-28 23:14] LABS: ALT (GPT) 77 U/L (12-78); AST (GOT) 87 U/L (15-37); GLOMERULAR FILTRATION RATE 80 ML/MIN (>89)
[2017-01-28 23:15] LABS: TOTAL BILIRUBIN ADULT 0.3 MG/DL (0.2-1.0)
[2017-01-28] MEDS ORDERED: POTASSIUM CHLORIDE 10 MEQ CONTROLLED RELEASE TAB PO ONE (23:15)
[2017-01-28 23:16] LABS: ALKALINE PHOSPHATASE 66 U/L (45-117)
[2017-01-28 23:17] LABS: ALCOHOL 200 MG/DL (0-5)
[2017-01-28 23:44] VITALS: BP 153/67
== END 2017-01-29 00:06 | disposition home or self-care (01) ==
LOC: PHED 22:14
DX: M54.16 Radiculopathy, lumbar region (principal); I10 Essential (primary) hypertension; Z72.0 Tobacco use; Z87.39 Personal history of other diseases of the musculoskeletal system and connective tissue; Z86.59 Personal history of other mental and behavioral disorders; Z86.19 Personal history of other infectious and parasitic diseases
CPT/HCPCS: 80053; 80307; 81001; 83735; 85025; 99283; E0113

== ENCOUNTER 2017-02-01 14:56 | Emergency (ER) | payer SELFPAY ==
[~2017-02-01] VITALS: Ht 180.3 cm; Wt 80.0 kg
[2017-02-01 15:16] VITALS: BP 135/65; PULSE 78; RESP 18; TEMP 98.4; O2SAT 95
--- NOTE | 2017-02-01 16:12 | PD ---
HPI Chief Complaint: Neuro Symptoms/ Deficits Time Seen by Provider: 15:09 Travel History International Travel<30 days: No Contact w/Intl Traveler<30days: No Traveled to known affect area: No History of Present Illness HPI 51-year-old male came to the emergency room with history of sudden onset is gapping sensation all the way from his neck to his right leg. Patient says that he was drinking his by mouth when all of a sudden he got the sensation. It brought him down to his knees and since then he could not feel his right leg. He called 911. As per EMS it seemed like he could not move his right leg. Patient was otherwise awake and answering questions appropriately. By the time he was brought into the emergency room he said he was able to feel his right leg but not his foot. He said his foot felt numb and he couldn't move it. Vital signs are stable. He has history of herniated disks. He says he is usually an exercise freak and does about 200 pushups every day. [facility] Past Medical History Narrative Medical List of his past medical, surgical, social and family history is reviewed from the nursing note. Blood Disorders: No Anxiety: Yes Depression: Yes Cancer: No Cardiovascular Problems: No Diabetes: No Diminished Hearing: No Endocrine: No Genitourinary: No Hepatitis: Yes (HEP C) Hypertension: Yes Immune Disorder: No Musculoskeletal: No Neurologic: No Psychiatric: Yes Reproductive: No Respiratory: No Schizophrenia: Yes Thyroid Disease: No Tetanus Vaccination: > 5 Years Past Surgical History Abdominal Surgery: Yes (LIVER BX NEG) Other Surgery: Yes Social History Alcohol Use: Yes (DRINKS BEER) Tobacco Use: Yes (1 PACK PER WEEK) Substance Use: Yes Allergies-Medications (Allergen,Severity, Reaction): Coded Allergies: acetaminophen (Unverified Allergy, Mild, DUE TO HEPATITIS, 02/01/17) Comments List of his allergies reviewed from the nursing note. Reported Meds & Prescriptions Reported Meds & Active Scripts Active No Active Prescriptions or Reported Medications Narrative Medication List of his home medications reviewed from the nursing note. Review of Systems Except as stated in HPI: all other systems reviewed are Neg Physical Exam Narrative GENERAL: Awake, alert, anxious, no obvious distress SKIN: Focused skin assessment warm/dry. HEAD: Atraumatic. Normocephalic. EYES: Pupils equal and round. No scleral icterus. No injection or drainage. ENT: No nasal bleeding or discharge. Mucous membranes pink and moist. NECK: Trachea midline. No JVD. CARDIOVASCULAR: Regular rate and rhythm. No murmur appreciated. RESPIRATORY: No accessory muscle use. Clear to auscultation. Breath sounds equal bilaterally. GASTROINTESTINAL: Abdomen soft, non-tender, nondistended. Hepatic and splenic margins not palpable. MUSCULOSKELETAL: No obvious deformities. No clubbing. No cyanosis. No edema. NEUROLOGICAL: Awake and alert. No obvious cranial nerve deficits. Motor grossly within normal limits. Normal speech. NIH stroke score of 0 PSYCHIATRIC: Appropriate mood and affect; insight and judgment normal. Data Data Last Documented VS Vital Signs Date Time Temp Pulse Resp B/P (MAP) Pulse Ox O2 Delivery O2 Flow Rate FiO2 02/01/17 18:00 02/01/17 15:16 98.4 78 18 95 Room Air Orders Orders Mri L Spine W/O Contrast (02/01/17 ) Ct Brain W/O Iv Contrast(Rout) (02/01/17 ) Drug Screen, Random Urine (02/01/17 15:12) Aspirin (Aspirin) (02/01/17 18:00) Labs Laboratory Tests Test 02/01/17 15:55 Urine Opiates Screen NEG Urine Barbiturates Screen NEG Urine Amphetamines Screen NEG Urine Benzodiazepines Screen NEG Urine Cocaine Screen NEG Urine Cannabinoids Screen NEG MDM Medical Decision Making Medical Screen Exam Complete: Yes Emergency Medical Condition: Yes Medical Record Reviewed: Yes Differential Diagnosis Neuropathy, radiculopathy, substance abuse Narrative Course 5:33 PM blood test results and CAT scan of the head is negative. MRI a is pending of the lumbar spine. If that's negative I will discharge the patient home if his symptoms have improved. 5:45 PM his MRI of the lumbar spine was negative for any significant radiculopathy. I went and reassessed him and patient was walking around in the room but with a limp. He kept saying his right foot distal to his ankle he could not feel anything. At this point I have ordered an MRI and MRA of his brain. Patient will get an aspirin. 5:53 PM I was told by the nurse that patient wanted to leave against medical advise. Patient is in full capacity to make decisions for himself. He understands the risks of leaving without getting the test done. Procedures EKG Prior to Arrival: No Diagnosis Primary Impression: Paresthesia of foot Qualified Codes: R20.2 - Paresthesia of skin Scripts No Active Prescriptions or Reported Meds Disposition: 07 AGAINST MEDICAL ADVICE Condition: Serious Sravan Mckeon MD Feb 01, 2017 16:12
--- NOTE | 2017-02-01 16:43 | RADRPT ---
EXAM DATE/TIME: 02/01/2017 16:23 [facility] COMPARISON: CT BRAIN W/O CONTRAST, August 15, 2016, 3:42. INDICATIONS : Head pain, patient fell and hit head. RADIATION DOSE: 37.02 CTDIvol (mGy) MEDICAL HISTORY : Hypertension. Hepatitis C. Schizophrenia, Liver BX. SURGICAL HISTORY : None. ENCOUNTER: Initial ACUITY: 1 day PAIN SCALE: 3/10 LOCATION: Bilateral cranial TECHNIQUE: Multiple contiguous axial images were obtained of the head. Using automated exposure control and adj ustment of the mA and/or kV according to patient size, radiation dose was kept as low as reasonably a chievable to obtain optimal diagnostic quality images. DICOM format image data is available electro nically for review and comparison. FINDINGS: CEREBRUM: The ventricles are normal for age. No evidence of midline shift, mass lesion, hemorrhage or acute in farction. No extra-axial fluid collections are seen. POSTERIOR FOSSA: The cerebellum and brainstem are intact. The 4th ventricle is midline. The cerebellopontine angle i s unremarkable. EXTRACRANIAL: The visualized portion of the orbits is intact. SKULL: The calvaria is intact. No evidence of skull fracture. CONCLUSION: Negative exam. To Brian MD on February 01, 2017 at 16:34 Board Certified Radiologist. This report was verified electronically.
--- NOTE | 2017-02-01 17:27 | RADRPT ---
EXAM DATE/TIME: 02/01/2017 16:57 [facility] COMPARISON: No previous studies available for comparison. INDICATIONS : Right foot numbness. No known injury. MEDICAL HISTORY : Hepatitis C. SURGICAL HISTORY : Right 5th digit reattachment. Left elbow surgery. ENCOUNTER: Subsequent ACUITY: 2 day PAIN SCORE: 0/10 LOCATION: back. TECHNIQUE: Multiplanar multisequence MRI of the lumbar spine was performed without contrast. FINDINGS: The most caudal appearing lumbar vertebra is numbered as L5. There is severe disc space narrowing at L5-S1. Diffuse disc desiccation is noted. There is minimal discogenic edema along the superior endpla te of S1 and inferior endplate of L4. The conus is unremarkable. T12-L1: The thecal sac has a normal diameter. No evidence of disc bulge or protrusion. The neural foramina are patent bilaterally. L1-L2: The thecal sac has a normal diameter. No evidence of disc bulge or protrusion. The neural foramina are patent bilaterally. L2-L3: The thecal sac has a normal diameter. No evidence of disc bulge or protrusion. The neural foramina are patent bilaterally. L3-L4: Diffuse disc bulge is noted greatest laterally on the left where there is mild mass effect on the lef t L3 exiting nerve, and abutment but no displacement of the bilateral L4 nerve roots. Mild facet and ligamentum flavum hypertrophy. No significant canal or foraminal narrowing. L4-L5: Diffuse disc bulge eccentric to the left with impingement upon the L5 nerve roots at the left lateral recess and mild abutment of the L4 exiting nerves. Mild facet hypertrophy. No significant canal or f oraminal narrowing. L5-S1: Broad central disc protrusion with mild mass effect on the S1 nerve roots bilaterally. Mild abutment of the left L5 exiting nerve and moderate left greater than right foraminal stenosis. CONCLUSION: Degenerative changes are noted as above. Jareth Ornelas MD on February 01, 2017 at 17:24 Board Certified Radiologist. This report was verified electronically.
[2017-02-01] MEDS ORDERED: ASPIRIN 325 MG TAB PO ONE (18:00)
== END 2017-02-01 18:38 | disposition left against medical advice (07) ==
LOC: NEPE 14:56
DX: R20.2 Paresthesia of skin (principal); R25.3 Fasciculation; I10 Essential (primary) hypertension; F10.10 Alcohol abuse, uncomplicated; F17.290 Nicotine dependence, other tobacco product, uncomplicated
CPT/HCPCS: 70450; 72148; 80307; 99285

== ENCOUNTER 2017-02-18 09:21 | Emergency (ER) | payer OTHER ==
[~2017-02-18] VITALS: Ht 180.3 cm; Wt 79.5 kg
[2017-02-18 09:34] VITALS: BP 137/80; PULSE 92; RESP 18; O2SAT 98
[2017-02-18 09:49] VITALS: BP 137/80; PULSE 87; RESP 18; O2SAT 96
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
== END 2017-02-18 12:02 | disposition home or self-care (01) ==
LOC: NEPE 09:21
DX: F13.10 Sedative, hypnotic or anxiolytic abuse, uncomplicated (principal); M21.371 Foot drop, right foot
CPT/HCPCS: 99283; L2114

== ENCOUNTER 2017-03-22 22:50 | Emergency (ER) | payer OTHER ==
[~2017-03-22] VITALS: Ht 180.3 cm; Wt 80.0 kg
[2017-03-22 23:01] VITALS: BP 137/81; PULSE 103; RESP 20; O2SAT 97
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
--- NOTE | 2017-03-23 00:35 | RADRPT ---
EXAM DATE/TIME: 03/23/2017 00:26 [facility] COMPARISON: CT BRAIN W/O CONTRAST, February 01, 2017, 16:23. INDICATIONS : Altered mental status. RADIATION DOSE: 38.13 CTDIvol (mGy) MEDICAL HISTORY : Hypertension. Hepatitis C. SURGICAL HISTORY : None. ENCOUNTER: Initial ACUITY: 1 day PAIN SCALE: 0/10 LOCATION: cranial TECHNIQUE: Multiple contiguous axial images were obtained of the head. Using automated exposure control and adj ustment of the mA and/or kV according to patient size, radiation dose was kept as low as reasonably a chievable to obtain optimal diagnostic quality images. DICOM format image data is available electro nically for review and comparison. FINDINGS: CEREBRUM: The ventricles are normal for age. No evidence of midline shift, mass lesion, hemorrhage or acute in farction. No extra-axial fluid collections are seen. POSTERIOR FOSSA: The cerebellum and brainstem are intact. The 4th ventricle is midline. The cerebellopontine angle i s unremarkable. EXTRACRANIAL: The visualized portion of the orbits is intact. SKULL: The calvaria is intact. No evidence of skull fracture. CONCLUSION: Normal examination. Akbar Reed MD on March 23, 2017 at 0:32 Board Certified Radiologist. This report was verified electronically.
--- NOTE | 2017-03-23 15:06 | EKG ---
Date Performed: 03/22/2017 Time Performed: 23:38:45 PTAGE: 51 years EKG: Sinus rhythm NORMAL ECG PREVIOUS TRACING : 08/15/2016 03.27 Compared to prior tracing no significant change DOCTOR: Bjorn Geronimo Interpretating Date/Time 03/23/2017 15:05:35
== END 2017-03-23 01:32 ==
LOC: NEPC 22:50
DX: F19.10 Other psychoactive substance abuse, uncomplicated (principal); F41.8 Other specified anxiety disorders; F20.9 Schizophrenia, unspecified; Z72.0 Tobacco use
CPT/HCPCS: 70450; 93005

== ENCOUNTER 2017-10-16 09:52 | Emergency (ER) | payer SELFPAY ==
[~2017-10-16] VITALS: Ht 177.8 cm; Wt 75.0 kg
[2017-10-16 09:59] VITALS: BP 194/114; PULSE 74; RESP 16; O2SAT 98
[2017-10-16] MEDS ORDERED: SODIUM CHLORIDE 0.9% FLUSH 10 ML FLUSH IVF PRN (10:15)
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
[2017-10-16 10:43] LABS: AUTOMATED NEUTROPHIL # 10.4 TH/MM3 (1.8-7.7); BASOPHIL # 0.1 TH/MM3 (0-0.2); BASOPHIL % 0.6 % (0.0-2.0); EOSINOPHIL # 0.1 TH/MM3 (0-0.4); EOSINOPHIL % 1.2 % (0.0-4.0); HEMATOCRIT 41.4 % (39.0-51.0); HEMOGLOBIN 14.4 GM/DL (13.0-17.0); LYMPHOCYTE # 0.8 TH/MM3 (1.0-4.8); MEAN CELL VOLUME 86.6 FL (80.0-100.0); MEAN CORPUSCULAR HEMOGLOBIN 30.1 PG (27.0-34.0); MEAN CORPUSCULAR HGB CONC 34.7 % (32.0-36.0); MEAN PLATELET VOLUME 7.3 FL (7.0-11.0); MONOCYTE # 0.5 TH/MM3 (0-0.9); NEUT % 87.2 % (16.0-70.0); PLATELET COUNT 274 TH/MM3 (150-450); RED BLOOD COUNT 4.78 MIL/MM3 (4.50-5.90); RED CELL DISTRIBUTION WIDTH 12.8 % (11.6-17.2); WHITE BLOOD COUNT 11.9 TH/MM3 (4.0-11.0)
[2017-10-16] MEDS ORDERED: SODIUM CHLOR 0.9% 1000 ML INJ 1,000 ML IV ONE (10:45)
[2017-10-16 11:03] LABS: ALT (GPT) 21 U/L (12-78)
[2017-10-16 11:04] LABS: ALBUMIN 3.3 GM/DL (3.4-5.0); AST (GOT) 22 U/L (15-37); BICARBONATE 24.4 MEQ/L (21.0-32.0); BLOOD UREA NITROGEN 13 MG/DL (7-18); CALCIUM 8.9 MG/DL (8.5-10.1); CHLORIDE 105 MEQ/L (98-107); CREATININE 0.89 MG/DL (0.60-1.30); GLOMERULAR FILTRATION RATE 89 ML/MIN (>89); GLUCOSE,RANDOM 84 MG/DL (74-106); SODIUM (NA) 138 MEQ/L (136-145)
[2017-10-16 11:12] LABS: ALKALINE PHOSPHATASE 71 U/L (45-117); TOTAL BILIRUBIN ADULT 0.4 MG/DL (0.2-1.0); TOTAL PROTEIN 8.2 GM/DL (6.4-8.2)
[2017-10-16 12:03] VITALS: BP 178/96; PULSE 78; RESP 16; O2SAT 100
--- NOTE | 2017-10-16 12:30 | EKG ---
Date Performed: 10/16/2017 Time Performed: 10:08:14 PTAGE: 52 years EKG: Sinus rhythm NORMAL ECG PREVIOUS TRACING : 03/22/2017 23.38 Since the previous tracing, no significant change noted DOCTOR: Ash Rodriguez Interpretating Date/Time 10/16/2017 12:29:04
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
== END 2017-10-16 13:06 | disposition home or self-care (01) ==
LOC: NEPC 09:52
DX: F19.10 Other psychoactive substance abuse, uncomplicated (principal); Z72.0 Tobacco use
CPT/HCPCS: 70450; 80053; 80307; 84443; 85025; 93005; 96360; 99285; J7030